=== PATIENT | female | born 1970 | race Caucasian/White ===

== ENCOUNTER 2018-11-08 12:03 | Inpatient (IN) ==
--- OUTSIDE RECORDS SUMMARY | 2018-11-08 12:06 | External Medical Summary | Continuity of Care Document ---
:1970 Author Name Valente MAilyn Address Unavailable Unavailable , Care Team Providers Name Role Phone Unavailable Unavailable Unavailable Nicko WAHL M.D. Unavailable Unavailable Unavailable Unavailable Unavailable Problems Exertional dyspnea (786.09) (R06.09) Back pain (724.5) (M54.9) Chest pain (786.50) (R07.9) Encounter for routine gynecological examination (V72.31) (Z0 1.419) Solitary thyroid nodule (241.0) (E04.1) Lump or mass in breast (611.72) (N63.0) Abdominal pain, RUQ (right upper quadrant) (789.01) (R10.11) Allergies and Adverse Reactions Aspirin TABS (Allergy) Penicillins (Allergy) Medications Multi-Vitamin Oral Tablet , M.D. Refills: 0 Procedures History of Breast Surgery Enlargement Procedure Status: Completed History of Oral Surgery Status: Complete d History of Oral Surgery Tooth Extraction Status: Completed History of Biopsy Thyroid Using Percutaneous Core Needle Status: Completed History of Laparoscopy With Excision Of Ectopic Status: Completed History of Hysteroscopy With Endometrial Ablation Status: Completed History of Lysis Of Peritoneal Adhesions Status: Completed History of Surgical Treatment Of Missed In First Status: Completed Trimester Immunizations Immunizations not documented Family History Grandmother Family history of Breast Cancer (V16.3) Status: Active Father Family history of CABG Status: Active Family history of pulmonary fibrosis (V17.6) (Z83.6) Status: Active Social History - Smoking Status Unknown if ever smoked Plan of Treatment Planned Observations Planned Goals not documented Results No Known Results Results not documented
[2018-11-08] MEDS ORDERED: OPTIRAY 320 125ml IV PRN (12:10)
--- NOTE | 2018-11-08 12:30 | CT Scan Report ---
CT angio head wo/w CLINICAL HISTORY: 48 years-old Female presenting with STROKE. TECHNIQUE: Multidetector CT angiography of the head was performed before and after the administration of intravenous contrast. 3-D volumetric and/or maximum intensity projection (MIP) images were subseq uently reconstructed for review. IV contrast: 121 mL of Optiray 320. One or more dose lowering techni ques were used consistent with the principles of ALARA (as low as reasonably achievable), including a utomatic exposure control, mA or kV adjustment to individual patient size, and/or use of iterative re construction. COMPARISON: None. CT DOSE (mGy.cm): The estimated cumulative dose is 1101.86 mGy.cm. FINDINGS: Chemical Mixer topogram: Unremarkable. NONCONTRAST CT HEAD: Ventricles and sulci normal in size. No hemorrhage. Brain parenchyma normal in appearance with preser abhilash sandoval-white differentiation. No acute territorial infarct. No mass effect or midline shift. No ext ra-axial fluid collection. Paranasal sinuses and mastoid air cells clear. Calvarium intact. CTA HEAD: Anterior circulation: Intracranial portions of the internal carotid arteries patent to the level of t he termini. Anterior cerebral arteries patent. Middle cerebral arteries patent. Anterior communicatin g artery patent. Posterior circulation: Left dominant vertebral artery. Intradural portions of the vertebral arteries patent. Posterior inferior cerebellar arteries patent. Basilar artery patent. Anterior inferior cereb ellar arteries poorly visualized. Superior cerebellar arteries patent. origin of the right post erior cerebral artery (ADVERTISING TEACHER). Conventional origin of the left ADVERTISING TEACHER, which is also patent. Posterior com municating arteries patent. Dural venous sinuses: Patent. Other: Allowing for the phase of contrast, brain parenchyma within normal limits. Calvarium intact. IMPRESSION: 1. No acute intracranial abnormality. 2. No evidence of aneurysm, focal vessel occlusion, or significant stenosis of the intracranial pilar da. Electronically signed by: Sin Saavedra M.D. 11/08/2018 12:29 PM
--- NOTE | 2018-11-08 12:33 | CT Scan Report ---
CT angio neck with con CLINICAL HISTORY: 48 years-old Female with stroke. Acute strokelike symptoms COMPARISON STUDY: CTA of the head of same day TECHNIQUE: Following the IV administration of 121 mL of Optiray 320, CT angiogram of the neck was per formed from the aortic arch to the skull base. Images are reviewed in the axial, sagittal, and singh l planes. 3-D MIPS images are created and assessed. IV contrast was administered without complication . All measurements were calculated based on NASCET criteria. A dose lowering technique was utilized adhering to the principles of ALARA. FINDINGS: The imaged opacified pulmonary arterial tree is unremarkable. Three-vessel morphology of aortic arch. Patency of the imaged bilateral subclavian arteries. Bilateral common carotid arteries are widely pa tent and unremarkable. Mild mixed plaque of the left carotid bulb results in less than 50% luminal na rrowing. The right carotid bulb and proximal right ICA appear normal. The bilateral internal carotid arteries are widely patent. Dominant left vertebral artery. Bilateral vertebral arteries appear paten t. A large portion of the right vertebral artery terminates into the right PICA. Diminutive basilar a rtery with origin of the bilateral posterior cerebral arteries. Partially imaged left breast implant. There is mild biapical pleural-parenchymal scarring. Soft tissu es are unremarkable. No adenopathy. Bones appear intact. Mild disc space narrowing with spondylitic s purring and facet arthrosis at C5-C6. IMPRESSION:Unremarkable CTA without aneurysm, dissection, high-grade stenosis or proximal branch occl usion. The above report was generated using voice recognition software. It may contain grammatical, syntax o r spelling errors. Electronically signed by: Raymundo Hawthorne M.D. 11/08/2018 12:32 PM
[2018-11-08 12:36] LABS: Basophils # (auto) 0.01 K/uL (0-0.2); Basophils % (auto) 0.2 %; Eosinophils # (auto) 0.04 K/uL (0-0.5); Eosinophils % (auto) 0.7 %; Hematocrit (blood only) 37.7 % (37-47); Hemoglobin 13.1 g/dL (12.0-16.0); Immature Granulocytes # (auto) 0.02 K/uL (0.00-0.02); Immature Granulocytes % (auto) 0.4 %; Mean Corpuscular Hemoglobin 31.2 pg (25-34); Mean Corpuscular Hgb Conc 34.7 g/dL (32-36); Mean Corpuscular Volume 89.8 fL (80-100); Mean Platelet Volume 9.6 fL (7.4-10.4); Monocytes # (auto) 0.49 K/uL (0.11-0.59); Monocytes % (auto) 8.7 %; Neutrophils # (auto) 3.79 K/uL (1.4-6.5); Platelet Count 266 K/uL (130-400); RDW Coefficient of Variation 12.6 % (11.5-14.5); RDW Standard Deviation 41.6 fL (36.4-46.3); White Blood Count 5.65 K/uL (4.8-10.8)
[2018-11-08] MEDS ORDERED: ALTEPLASE For Stroke IV STA (12:48)
[2018-11-08 12:50] LABS: INR 1.1 (0.9-1.1); Partial Thromboplastin Ratio 1.2; Partial Thromboplastin Time 31.6 Seconds (21.0-31.0); Prothrombin Time 10.8 Seconds (9.0-12.0)
[2018-11-08 12:54] LABS: Pregnancy Test, Serum Negative (Negative)
[2018-11-08] MEDS ORDERED: ALTEPLASE IV ONE ×2 (12:55→13:00)
[2018-11-08] MEDS ORDERED: RECOMBINANT IV ONE ×2 (12:55→13:00)
[2018-11-08 12:56] LABS: Alanine Aminotransferase 17 U/L (12-78); Albumin Level 3.5 gm/dl (3.4-5.0); Aspartate Aminotransferase 10 U/L (15-37); BUN Creatinine Ratio 12.7 (10-20); Blood Urea Nitrogen 9 mg/dl (7-18); Calcium 8.5 mg/dl (8.5-10.1); Carbon Dioxide 26 mmol/L (21-32); Chloride 106 mmol/L (98-107); Est GFR (African American) 110.3; Est GFR (Non-African American) 95.1; Glucose 94 mg/dl (70-99); Magnesium 2.1 mg/dl (1.8-2.4); Potassium 3.8 mmol/L (3.5-5.1); Sodium 138 mmol/L (136-145)
[2018-11-08 13:00] LABS: Albumin Globulin Ratio 1.2 (0.9-2); Alkaline Phosphatase 70 U/L (45-117); Bilirubin,Total 0.6 mg/dl (0.2-1); Globulin 2.9 gm/dl (2.5-4.0); Total Protein 6.4 gm/dl (6.4-8.2); Troponin I < 0.015 ng/ml (0-0.045)
[2018-11-08] MEDS ORDERED: WATER, STERILE 50 ML, TRANEXAMIC ACID ORAL RINSE 5,000 MG, BARCODE IDENTIFIER 1 EA MT ONE (13:03)
[2018-11-08] MEDS: SODIUM CHLORIDE 0.9% 1000ML 1,000 ML IV SCH ×2 (13:03→16:00)
[2018-11-08] MEDS ORDERED: DiphenhydrAMINE HCL 50 MG/ML VIAL ONE (14:18)
--- NOTE | 2018-11-08 14:39 | History & Physical Report ---
Date of Service November 08, 2018 Assessment & Plan (1) Stroke-like symptoms: Pt given tpa in the ED after telemed eval CTA head/neck WNL MRI pending CBC, PRP WNL Trop neg x1 Neuro c/s PT/OT if function not regained Recent headache made complex migraine a possible dx, however pt without hx of prior migraines ICU for monitoring per tpa protocol (2) DVT prophylaxis: SCDs History of Present Illness Primary Care Provider: NO PCP 48 y/o F c/o sudden onset R UE/LE paralysis. Pt was having dental implants done today with Dr. Roa. She was sedated with propofol and as she was coming out of this around 11a she was noted to have R UE/LE paralysis. She has no prior hx of similar issue. She states that for the last few days she has been taking ibuprofen for what she thought was a stress headache. She is not usually one for headaches but this is a busy time of year for her at work and her children went back to school today as well, so she thought it was stress related. Ibuprofen was not really helping. She cannot tell me where her headaches were located. No vision issues, n/v. She states she was still able to go to work. She had also noted some R sided tingling in her extremities that last few days, which was new. She took a hot shower for about 20 minutes and this resolved. She noted it had returned with the paralysis issue post-dental work. Pt states that while she was having the paralysis in the office she had full sensation to her R UE/LE. Pt was evaluated by telemed in the ED and it was determined that she should be given tpa. At this point, pt does have ability to move her LE and UE now, but not as she normally would. She can move all of her fingers and her hand, but still with issues picking up her arm. She can move her LE and toes as well now. Prior to this, they had been unable to move at all. Pt denies fever, SOB, chest pain, abd pain, n/v/c/d, LE pain or swelling. Pt notes that she had the same procedure done recently, also with propofol use and no issues. Allergies Allergy/AdvReac Type Severity Reaction Status Date / Time aspirin Allergy Intermediate Verified 11/08/18 13:42 Penicillins Allergy Intermediate HIVES Verified 11/08/18 13:42 Home Medications Home Medications Medication Instructions Recorded Confirmed Type propofol 180 mg IV UD 11/08/18 11/08/18 History Past Med/Surg History Medical History No pertinent past medical history Family History Father Myocardial infarction, Onset Age: 42 CABG Other No pertinent family history in first degree relatives Social History Preferred Language: Occitan Beliefs That Will Affect Care: None Current Living Situation: Spouse Other Information That Helps Us Care for You: No Feels Safe at Home: Yes Safety Concerns: Feels Safe At This Time Smoking Status: Never smoker Hx Alcohol Use: Yes (occasional mixed drink) Alcohol type: wine Hx Substance Use: No Review of Systems Review of Systems: Pertinent positives and negatives reviewed in HPI--all others negative Physical Exam Constitutional: WD/WN, vitals as above Eyes: normal visual hernandez by confrontation and + anicteric sclerae Neck: normal visual inspection and trachea midline Respiratory: normal respiratory effort, lungs clear to auscultation Cardiovascular: Rate/Rhythm: regular rate and regular rhythm Gastrointestinal (Abdomen): Inspection/Auscultation: abdomen not distended Percussion/Palpation: abdomen soft; abdomen nontender Musculoskeletal: Head/Neck/Chest: normocephalic and head atraumatic negative for edema, peripheral pulses intact Skin: no rashes, warm and dry Neurologic: CN's II-XI intact bilaterally and awake; not confused Speech / Cognition: normal speech Decreased R sided strength against resistance in all planes, 3/5 Moving all fingers and able to grasp my hand, but weak R sided network architect strength 3/5 Psychiatric: A+Ox3, euthymic affect Results & Data Vital Signs (Past 12 Hours) Vital Signs Temp Pulse Pulse Resp BP BP Pulse Ox 11/08/18 14:20 118 H 147/113 H 99 11/08/18 14:10 91 H 151/95 H 99 11/08/18 14:00 93 H 136/103 H 98 11/08/18 13:40 145/95 H 98 11/08/18 13:31 89 154/98 H 99 11/08/18 13:20 88 144/97 H 98 11/08/18 13:12 93 H 150/100 H 98 11/08/18 13:10 88 150/105 H 98 11/08/18 13:05 96 H 154/97 H 98 11/08/18 13:02 97 H 143/92 H 98 11/08/18 13:00 91 H 160/123 H 98 11/08/18 12:31 105 H 27 H 156/103 H 99 11/08/18 12:30 103 H 156/103 H 98 11/08/18 12:17 36.7 C 110 H 20 163/98 H 98 Diagnostic Findings CTA head/neck: neg for acute Code Status & VTE Plan Code Status Full code VTE Prophylaxis Plan VTE Prophylaxis will be ordered: Yes PG Care Time/CCT Total # of Minutes Spent Total Time Spent with Patient: Total time spent is greater than 50% in coordination of care (as documented) at patient's floor/unit and/or counseling patient:
--- NOTE | 2018-11-08 14:59 | Critical Care Consultation ---
Date of Consultation November 08, 2018 Assessment & Plan (1) Hemiplegia affecting right dominant side: Reason Critically Ill: 48-year-old female here with a PMHx significant for ruptured ectopic , resolved right collapsed lung, dental surgery, and a single prior episode of weakness 1 week prior to admission who presented with right extremity weakness and qualitative sensory decrease following sedation for tooth extraction and who was admitted for stroke evaluation as/P TPA admini stration.. Neuro - [facility] ICU: NEGATIVE Left-sided weakness 2/2 ? TIA versus stroke versus complex migraine as/P TPA at 1302 hrs. 11/08 Initial stroke scale of 7 improved to 1 on clinical exam. Patient feels 90% back to normal, improving right-sided strength. CTA without aneurysm, dissection, high-grade stenosis or proximal branch occlusion. CT-H shows no acute intracranial abnormality, no evidence of aneurysm, focal vessel occlusion, or significant stenosis of the intracranial arteries. MRI pending Day 2 post TPA orders per protocol tomorrow Cardiac - No cardiac history per patient. Troponin negative. Hypertension Systolic goal less than 185, diastolic goal less than 105 Metoprolol tartrate 5 mg IV every 6 hours as needed for sys>185, diast >105, Hold for HR<60 or systolic <100 Respiratory - No pulmonary disease per patient Maintaining good oxygen saturation without tachypnea on room air GI - Regular diet, soft texture 2/2 pain from tooth extraction RENAL/LYTES - No significant electrolyte derangement Creatinine 0.74 replace lytes as needed. - No concerns at this time. ENDO - No acute concerns, glucose 94 on admit HEME - Stable H&H. We will monitor for any drops in the setting of TPA administration Hemoglobin 13.1 on admit ID - No concerns for infection at this point. INTEGUMENTARY - No concerns, no lesions/rash LINES/IV ACCESS - Right and left antecubital PIVs intact. DVT PROPHYLAXIS - Contraindicated in the setting of TPA administration Thank you for allowing us to be part of this patient's care. Please refer to Dr. Osorio's documentation for any further recommendations. (2) Stroke-like symptoms: (3) Received intravenous tissue plasminogen activator (tPA) within last 24 hours: Supervising Physician Co-Signing Physician Notes Dr. Guerra was resident physician during care of patient. I separately evaluated patient for marquez portions of the history and the exam. I was present during the critical portion of medical decision making, and I discussed the case with the resident. I generally agree with the findings and plan. Significantly improving neuro symptoms, stable to go to MRI to evaluate for acute ischemia. History of Present Illness Reason for Consultation: Right-sided weakness s/P TPA Requesting Physician: Magdalena Potter History of Present Illness Stormy is a 48-year-old female with a past medical history of ruptured ectopic , and dental surgery who presents with an episode of right arm/leg weakness and right-sided facial "dullness" to sensation but not complete numbness. She received TPA for a stroke scale of 7 in the emergency department. Other reports she was in her usual state of health up until this morning when she went to have a left lower tooth (#19) extracted at the dentist. She was last known well at 10:30 AM at which time she was sedated with propofol for the procedure. When she awoke she experienced bilateral arm and right leg weakness. Her left arm weakness resolved after several minutes, however she had almost no strength in her right arm and leg and was unable to move them. She reports that she had sensation in both arms and both legs, although soft touch felt more dull on the right compared to the left. Emergency transport was called by the dental office and she was brought to the emergency department where she received TPA at 1302 hrs. (6 mg) and was placed on a 54 mg drip at 1307 hrs. She did not have any facial asymmetry/facial droop or facial weakness. She endorses a similar episode 1 week ago when she awoke at 1 AM with chest pain, palpitations, and weakness over her entire body. She "felt like I was going to pass out "and felt weak all over and had difficulty walking. She did not have any shortness of breath or diaphoresis with this episode. She reports the episode lasted approximately an hour and then passed. No prior history of similar symptoms before this. She reports she is able to mason her children, go up several flights of stairs, and walk briskly without any chest pain or unusual shortness of breath. No prior history of cardiac disease, although she notes a strong family history with her father having an WI at age 42 and her mother and father both requiring pacers when they got older. No history of thyroid disease. Denies other family history. She endorses a current headache, "mild dullness "on the left side. Slightly throbs, no visual change or aura. Reports history of intermittent headaches in the past. Medical history: Ruptured ectopic , dental extraction, history of right collapsed lung after uterine ablation. Denies other medical or surgical history Allergies: Penicillin and aspirin allergy, hives as a child per patient Social: Denies tobacco use, social alcohol use less than 1/week when drinking a sitting on average. No recreational drug use, specifically denies marijuana and cocaine. Allergies Allergy/AdvReac Type Severity Reaction Status Date / Time aspirin Allergy Intermediate Verified 11/08/18 13:42 Penicillins Allergy Intermediate HIVES Verified 11/08/18 13:42 Home Medications Home Medications Medication Instructions Recorded Confirmed Type propofol 180 mg IV UD 11/08/18 11/08/18 History Patient History Medical History No pertinent past medical history Family History Father Myocardial infarction, Onset Age: 42 CABG Other No pertinent family history in first degree relatives Social History Preferred Language: Azeri Communication Ability: Effective Beliefs That Will Affect Care: None Current Living Situation: Spouse Other Information That Helps Us Care for You: No Feels Safe at Home: Yes Safety Concerns: Feels Safe At This Time Smoking Status: Never smoker Hx Alcohol Use: Yes (occasional mixed drink) Alcohol type: wine Hx Substance Use: No Review of Systems Review of Systems: Constitutional: Denies fever, chills, malaise, Eyes: Denies double vision, vision change, eye pain ENT: Denies ear pain, sore throat, sinus pain Cardiovascular: Chest pain and palpitations as noted in HPI, denies extremity swelling Respiratory: Denies shortness of breath, cough, sputum production, difficulty breathing Gastrointestinal: Denies abdominal pain, nausea, vomiting, constipation, diarrh ea Genitourinary: Denies pain with urination, urinary urgency Musculoskeletal: Endorses weakness and sensory change as noted in HPI. Integumentary:Denies rash, lesions, bruising Neurological: Versus headache as noted in HPI. Denies tingling. Physical Exam Physical Exam: General: A&Ox3. NAD. Cooperative. Able to follow one and two- step commands. No aphasia. Speech with normal volume, prosody and linear thought process. HEENT: Atraumatic, normocephalic. No facial asymmetry or facial droop. Facial sensation intact and symmetrical in all distributions. Facial strength intact and symmetrical. Pupils equal and reactive to light and accommodation. Extraocular movements intact without nystagmus or saccades. No visual field cuts. Pulm: CTAB A&P. -wheezes, -rales, -rhonchi. Symmetrical chest rise. No increase work of breathing. No respiratory distress. Cardiac: RRR, -mrg. Radial pulses intact and symmetrical. Abdominal: Nontender, nondistended, soft. BS present. Extremity: Right reflesher strength, interosseal 4+/5. Ankle dorsiflexion/plantarflexion and hip flexion 4+/5. Elbow flexion 5/5, shoulder internal/external rotation/flexion/extension 5/5. Sensation intact and symmetrical. Babinski downgoing. Patellar DTR 2+. Left reflesher strength, interosseal, elbow flexion/extension, shoulder internal/external rotation/flexion/extension, hip flexion, ankle plantar flexion/dorsiflexion 5/5. Sensation intact. Babinski downgoing. Patellar DTR 2+. NIH SS: Alert, oriented x3, blinks eyes and squeezes hands, EOM intact, no visual field cuts, no facial asymmetry, no left arm or leg drift, no right arm drift, minimal right leg drift which does not hit the bed, no ataxia, no sensory asymmetry, no aphasia, no dysarthria, no extinction/inattention. Overall score reduced to 1 from 7 on admit to ED. Results & Data Vital Signs (Past 12 Hours) Vital Signs Temp Pulse Pulse Resp BP BP Pulse Ox 11/08/18 14:41 91 H 124/104 H 100 11/08/18 14:30 96 H 165/107 H 100 11/08/18 14:23 110 H 156/118 H 100 11/08/18 14:20 118 H 147/113 H 99 11/08/18 14:10 91 H 151/95 H 99 11/08/18 14:00 93 H 136/103 H 98 11/08/18 13:40 145/95 H 98 11/08/18 13:31 89 154/98 H 99 11/08/18 13:20 88 144/97 H 98 11/08/18 13:12 93 H 150/100 H 98 11/08/18 13:10 88 150/105 H 98 11/08/18 13:05 96 H 154/97 H 98 11/08/18 13:02 97 H 143/92 H 98 11/08/18 13:00 91 H 160/123 H 98 11/08/18 12:31 105 H 27 H 156/103 H 99 11/08/18 12:30 103 H 156/103 H 98 11/08/18 12:17 36.7 C 110 H 20 163/98 H 98 PG Care Time/CCT Total # of Minutes Spent Total Time Spent with Patient: Total time spent is greater than 50% in coordination of care (as documented) at patient's floor/unit and/or counseling patient: Resident Activity Tracking Resident Involvement: Resident Care Provided Care Provided: Adult Hospital Medicine (1) Hemiplegia affecting right dominant side Hemiplegia etiology: unspecified etiology Hemiplegia type: unspecified type Qualified Code(s): G81.91 - Hemiplegia, unspecified affecting right dominant side
[2018-11-08] MEDS ORDERED: ICU PROTOCOL FOR HYPERGLYCEMIA PRN (15:51)
[2018-11-08] MEDS ORDERED: METOPROLOL TARTRATE 1 MG/ML VIAL IV STA (15:55)
[2018-11-08] MEDS ORDERED: METOPROLOL TARTRATE 1 MG/ML VIAL IV PRN (17:14)
--- NOTE | 2018-11-08 17:45 | Emergency Department Note ---
Entered by Markell Bhatt acting as a scribe for History of Present Illness General Chief complaint: Stroke Alert Source: patient History of Present Illness Provider complaint: Hemiparesis Onset (ago): hour(s) (1.5) Location: head Pain Consistency: + constant Relieved By: + none Exacerbated By: + none Associated symptoms: + headaches and + weakness; no chest pain and no shortness of breath The patient is a 48 year old female who presents to the Emergency Room with complaints of constant right sided hemiparesis that started about 1.5 hours ago immediately following an oral surgery done by Dr. Baird. The patient states she can not move her right upper or lower extremities but she does still have minimal sensation in these limbs. The patient mentioned that she had a headache for the previous 2 days along with one episode of chest pain, however this has since resolved. Per the , the patient had a similar episode of h emiparesis a week ago, but it resolved within the hour. The patient currently knows where she is, her age, and is speaking normally. She denies any chest pain or shortness of breath. Per EMS, the patient was given 108mg of Propofol during her oral procedure. Home Medications Home Medications Medication Instructions Recorded Confirmed Type propofol 180 mg IV UD 11/08/18 11/08/18 History Allergies Allergy/AdvReac Type Severity Reaction Status Date / Time aspirin Allergy Intermediate Verified 11/08/18 13:42 Penicillins Allergy Intermediate HIVES Verified 11/08/18 13:42 Past Med/Surg History Medical History No pertinent past medical history Family History Father , age 78 of pulmonary fibrosis Myocardial infarction, Onset Age: 42 CABG Coronary heart disease Mother Coronary heart disease Other No pertinent family history in first degree relatives Social History Preferred Language: Upper Sorbian Communication Ability: Effective Beliefs That Will Affect Care: None Current Living Situation: Spouse current occupational status: employed current occupation: portfolio assistant in the [employer] Other Information That Helps Us Care for You: No Feels Safe at Home: Yes Safety Concerns: Feels Safe At This Time Smoking Status: Never smoker Hx Alcohol Use: Yes (occasional mixed drink) Alcohol type: wine Alcohol Intake Frequency Comment: Once per week or less. Hx Substance Use: No Review of Systems See HPI for pertinent positives & negatives. and A total of 10 systems reviewed and were otherwise negative Physical Exam Vital Signs Vital Signs - 24 hr 11/08/18 12:17 11/08/18 12:30 11/08/18 12:31 Temperature 36.7 C Temperature Source Oral Sepsis Recent Fever Within 48 Hours No Sepsis New/Unexplained Change in Mental Status No Sepsis Action Taken by Nursing No Action Required Pulse Rate 110 H 103 H Pulse Rate [Right Finger] 105 H Pulse Rate from SpO2 Sensor 102 H Pulse Rhythm Regular Pulse Rhythm [Right Finger] Regular Pulse Strength Normal Pulse Strength [Right Finger] Normal Respiratory Rate 20 27 H Respiratory Effort / Characteristics Non-Labored Non-Labored Respiratory Depth Normal Normal Respiratory Pattern Regular Regular Blood Pressure 163/98 H 156/103 H Blood Pressure [Right Arm] 156/103 H Blood Pressure Mean 119 120 Blood Pressure Mean [Right Arm] 120 Blood Pressure Position Sitting Blood Pressure Position [Right Arm] Sitting Pulse Oximetry 98 98 99 Oxygen Delivery Method Room Air Room Air 11/08/18 13:00 11/08/18 13:02 11/08/18 13:05 Temperature Temperature Source Sepsis Recent Fever Within 48 Hours Sepsis New/Unexplained Change in Mental Status Sepsis Action Taken by Nursing Pulse Rate 91 H 97 H 96 H Pulse Rate [Right Finger] Pulse Rate from SpO2 Sensor 91 H 96 H 98 H Pulse Rhythm Pulse Rhythm [Right Finger] Pulse Strength Pulse Strength [Right Finger] Respiratory Rate Respiratory Effort / Characteristics Respiratory Depth Respiratory Pattern Blood Pressure 160/123 H 143/92 H 154/97 H Blood Pressure [Right Arm] Blood Pressure Mean 135 109 116 Blood Pressure Mean [Right Arm] Blood Pressure Position Blood Pressure Position [Right Arm] Pulse Oximetry 98 98 98 Oxygen Delivery Method 11/08/18 13:10 11/08/18 13:12 11/08/18 13:20 Temperature Temperature Source Sepsis Recent Fever Within 48 Hours Sepsis New/Unexplained Change in Mental Status Sepsis Action Taken by Nursing Pulse Rate 88 93 H 88 Pulse Rate [Right Finger] Pulse Rate from SpO2 Sensor 89 93 H 90 Pulse Rhythm Pulse Rhythm [Right Finger] Pulse Strength Pulse Strength [Right Finger] Respiratory Rate Respiratory Effort / Characteristics Respiratory Depth Respiratory Pattern Blood Pressure 150/105 H 150/100 H 144/97 H Blood Pressure [Right Arm] Blood Pressure Mean 120 116 112 Blood Pressure Mean [Right Arm] Blood Pressure Position Blood Pressure Position [Right Arm] Pulse Oximetry 98 98 98 Oxygen Delivery Method 11/08/18 13:31 11/08/18 13:40 11/08/18 14:00 Temperature Temperature Source Sepsis Recent Fever Within 48 Hours Sepsis New/Unexplained Change in Mental Status Sepsis Action Taken by Nursing Pulse Rate 89 93 H Pulse Rate [Right Finger] Pulse Rate from SpO2 Sensor 89 90 91 H Pulse Rhythm Pulse Rhythm [Right Finger] Pulse Strength Pulse Strength [Right Finger] Respiratory Rate Respiratory Effort / Characteristics Respiratory Depth Respiratory Pattern Blood Pressure 154/98 H 145/95 H 136/103 H Blood Pressure [Right Arm] Blood Pressure Mean 116 111 114 Blood Pressure Mean [Right Arm] Blood Pressure Position Blood Pressure Position [Right Arm] Pulse Oximetry 99 98 98 Oxygen Delivery Method 11/08/18 14:10 11/08/18 14:20 11/08/18 14:23 Temperature Temperature Source Sepsis Recent Fever Within 48 Hours Sepsis New/Unexplained Change in Mental Status Sepsis Action Taken by Nursing Pulse Rate 91 H 118 H 110 H Pulse Rate [Right Finger] Pulse Rate from SpO2 Sensor 91 H 118 H 107 H Pulse Rhythm Pulse Rhythm [Right Finger] Pulse Strength Pulse Strength [Right Finger] Respiratory Rate Respiratory Effort / Characteristics Respiratory Depth Respiratory Pattern Blood Pressure 151/95 H 147/113 H 156/118 H Blood Pressure [Right Arm] Blood Pressure Mean 113 124 130 Blood Pressure Mean [Right Arm] Blood Pressure Position Blood Pressure Position [Right Arm] Pulse Oximetry 99 99 100 Oxygen Delivery Method 11/08/18 14:30 Temperature Temperature Source Sepsis Recent Fever Within 48 Hours Sepsis New/Unexplained Change in Mental Status Sepsis Action Taken by Nursing Pulse Rate 96 H Pulse Rate [Right Finger] Pulse Rate from SpO2 Sensor 90 Pulse Rhythm Pulse Rhythm [Right Finger] Pulse Strength Pulse Strength [Right Finger] Respiratory Rate Respiratory Effort / Characteristics Respiratory Depth Respiratory Pattern Blood Pressure 165/107 H Blood Pressure [Right Arm] Blood Pressure Mean 126 Blood Pressure Mean [Right Arm] Blood Pressure Position Blood Pressure Position [Right Arm] Pulse Oximetry 100 Oxygen Delivery Method Vital signs reviewed. General: Well-appearing 48 year old female, in no significant distress. HEENT: No scleral icterus, PERRLA, neck supple. Atraumatic. Cardiovascular: Regular rate and rhythm, no extra sounds. Pulmonary: Clear to auscultation bilaterally, normal work of breathing. Abdomen: Soft, nontender, nondistended, positive bowel sounds. Musculoskeletal: Atraumatic, no peripheral edema. Neurologic: Patient awake alert and oriented x 3. Cranial nerves 2 through 12 grossly intact. Dense hemiparesis of the right upper and lower extremities. Very subtle twitching of the toes and fingers on the right side. Skin: Warm, dry, no rash Course 1203: Past medical records reviewed. A stroke alert was immediately called. The patient was evaluated in room B01, and a complete history and physical examination were performed. 1210: I spoke Dr. Tyler Ramírez about the patient's case. She is going to evaluate the patient via TeleStroke. 1216: I spoke to Dr. Baird who further informed me about the patient. 1230: I spoke to Dr. Scott after his evaluation and he recommended TPA due to her dense right sided hemiparesis. 1323: I spoke to Dr. Potter [facility] Hospitalist about the patient's case. She is going to accept the patient for further evaluation. 1447: I reevaluated the patient and her strength has greatly improved on her right side. Consultations Consultation #1: I spoke Dr. Tyler Ramírez about the patient's case. She is going to evaluate the patient via TeleStroke. Time: 12:10 Consultation #2: I spoke to Dr. Baird who further informed me about the patient. Time: 12:16 Consultation #3: I spoke to Dr. Scott after his evaluation and he recommended TPA due to her dense right sided hemiparesis. Time: 12:30 Additional Consultation(s): 1323: I spoke to Dr. Potter [facility] Hospitalist about the patient's case. She is going to accept the patient for further evaluation. Administered Medications Discontinued Medications Sterile Water 50 ml/Tranexamic Acid 5,000 mg/BARCODE IDENTIFIER 1 ea 0 ml MT ONE ONE Stop: 11/08/18 13:04 Last Admin: 11/08/18 13:23 Dose: 10 ml Documented by: [id number] Diphenhydramine HCl (Benadryl) Confirm Administered Dose 50 mg .ROUTE .STK-MED ONE Stop: 11/08/18 14:19 Last Admin: 11/08/18 14:20 Dose: 25 mg Documented by: [id number] Gadobutrol (Gadavist 65ml) 6.7 ml IV ONCE PRN PRN Reason: Interaction Checking Stop: 11/12/18 18:20 Last Admin: 11/08/18 18:22 Dose: 6.7 ml Documented by: [id number] Sodium Chloride (Nss 1000ml) 1,000 mls @ 100 mls/hr IV .Q10H [place] Stop: 12/08/18 12:14 Last Infusion: 11/09/18 11:50 Dose: 0 mls/hr Documented by: [id number] Admin: 11/09/18 03:11 Dose: 100 mls/hr Documented by: [id number] Infusion: 11/09/18 02:00 Dose: 100 mls/hr Documented by: [id number] Admin: 11/08/18 16:00 Dose: 100 mls/hr Documented by: [id number] Infusion: 11/08/18 14:00 Dose: 0 mls/hr Documented by: [id number] Admin: 11/08/18 13:03 Dose: 100 mls/hr Documented by: [id number] Alteplase, Recombinant 6 mg/ (Syringe) 6 mls @ 6 mls/min IV ONE ONE Stop: 11/08/18 12:56 Last Admin: 11/08/18 13:02 Dose: 6 mls/min Documented by: [id number] Cosigned by: [id number] Alteplase, Recombinant 54 mg/ (EMPTY BAG) 54 mls @ 54 mls/hr IV TODAY@1300 ONE Stop: 11/08/18 13:59 Last Infusion: 11/08/18 14:25 Dose: 0 mls/hr Documented by: [id number] Cosigned by: [id number] Admin: 11/08/18 13:07 Dose: 54 mls/hr Documented by: [id number] Cosigned by: [id number] Ioversol (Optiray 320 125ml) 121 ml IV ONCE PRN PRN Reason: Interaction Checking Stop: 11/12/18 12:09 Last Admin: 11/08/18 12:11 Dose: 121 ml Documented by: [id number] Metoprolol Tartrate (Lopressor) 5 mg IV NOW STA Stop: 11/08/18 15:56 Last Admin: 11/08/18 15:59 Dose: 5 mg Documented by: [id number] Medical Decision Making Differential Diagnosis Differential Diagnosis includes but is not limited to ischemic Stroke, hemorrhagic stroke, bells palsy, mass, neoplasm, migraine headache, seizure, subarachnoid hemorrhage, TIA, and transient global amnesia. Medical Records Attestation: I reviewed the patient's medical records. Home Medications Current Medication List: was personally reviewed by me Laboratory Data Attestation: I reviewed the patient's lab results. Result diagrams: 11/09/18 13:29 11/09/18 13:29 Lab Results 11/08/18 11/08/18 11/08/18 Range/Units 12:19 12:20 12:20 WBC 5.65 (4.8-10.8) K/uL RBC 4.20 (4.2-5.4) M/uL Hgb 13.1 (12.0-16.0) g/dL Hct 37.7 (37-47) % MCV 89.8 (80-100) fL MCH 31.2 (25-34) pg MCHC 34.7 (32-36) g/dL RDW Std Deviation 41.6 (36.4-46.3) fL RDW Coeff of Josephine 12.6 (11.5-14.5) % Plt Count 266 (130-400) K/uL MPV 9.6 (7.4-10.4) fL Immature Gran % (Auto) 0.4 % Neut % (Auto) 67.0 % Lymph % (Auto) 23.0 % Ventura % (Auto) 8.7 % Eos % (Auto) 0.7 % Baso % (Auto) 0.2 % Immature Gran # (Auto) 0.02 (0.00-0.02) K/uL Neut # (Auto) 3.79 (1.4-6.5) K/uL Lymph # (Auto) 1.30 (1.2-3.4) K/uL Ventura # (Auto) 0.49 (0.11-0.59) K/uL Eos # (Auto) 0.04 (0-0.5) K/uL Baso # (Auto) 0.01 (0-0.2) K/uL PT 10.8 (9.0-12.0) Seconds INR 1.1 (0.9-1.1) APTT 31.6 H (21.0-31.0) Seconds PTT Ratio 1.2 Sodium (136-145) mmol/L Potassium (3.5-5.1) mmol/L Chloride (98-107) mmol/L Carbon Dioxide (21-32) mmol/L Anion Gap (3-11) BUN (7-18) mg/dl Creatinine (0.6-1.2) mg/dl Est Cr Clr Drug Dosing Est GFR ( Amer) Est GFR (Non-Af Amer) BUN/Creatinine Ratio (10-20) Glucose (70-99) mg/dl POC Glucose 93 (70-99) Calcium (8.5-10.1) mg/dl Magnesium (1.8-2.4) mg/dl Total Bilirubin (0.2-1) mg/dl AST (15-37) U/L ALT (12-78) U/L Alkaline Phosphatase (45-117) U/L Troponin I (0-0.045) ng/ml Total Protein (6.4-8.2) gm/dl Albumin (3.4-5.0) gm/dl Globulin (2.5-4.0) gm/dl Albumin/Globulin Ratio (0.9-2) HCG, Qual (Negative) 11/08/18 11/08/18 Range/Units 12:20 12:20 WBC (4.8-10.8) K/uL RBC (4.2-5.4) M/uL Hgb (12.0-16.0) g/dL Hct (37-47) % MCV (80-100) fL MCH (25-34) pg MCHC (32-36) g/dL RDW Std Deviation (36.4-46.3) fL RDW Coeff of Josephine (11.5-14.5) % Plt Count (130-400) K/uL MPV (7.4-10.4) fL Immature Gran % (Auto) % Neut % (Auto) % Lymph % (Auto) % Ventura % (Auto) % Eos % (Auto) % Baso % (Auto) % Immature Gran # (Auto) (0.00-0.02) K/uL Neut # (Auto) (1.4-6.5) K/uL Lymph # (Auto) (1.2-3.4) K/uL Ventura # (Auto) (0.11-0.59) K/uL Eos # (Auto) (0-0.5) K/uL Baso # (Auto) (0-0.2) K/uL PT (9.0-12.0) Seconds INR (0.9-1.1) APTT (21.0-31.0) Seconds PTT Ratio Sodium 138 (136-145) mmol/L Potassium 3.8 (3.5-5.1) mmol/L Chloride 106 (98-107) mmol/L Carbon Dioxide 26 (21-32) mmol/L Anion Gap 6.0 (3-11) BUN 9 (7-18) mg/dl Creatinine 0.74 (0.6-1.2) mg/dl Est Cr Clr Drug Dosing Not Reportable Est GFR ( Amer) 110.3 Est GFR (Non-Af Amer) 95.1 BUN/Creatinine Ratio 12.7 (10-20) Glucose 94 (70-99) mg/dl POC Glucose (70-99) Calcium 8.5 (8.5-10.1) mg/dl Magnesium 2.1 (1.8-2.4) mg/dl Total Bilirubin 0.6 (0.2-1) mg/dl AST 10 L (15-37) U/L ALT 17 (12-78) U/L Alkaline Phosphatase 70 (45-117) U/L Troponin I < 0.015 (0-0.045) ng/ml Total Protein 6.4 (6.4-8.2) gm/dl Albumin 3.5 (3.4-5.0) gm/dl Globulin 2.9 (2.5-4.0) gm/dl Albumin/Globulin Ratio 1.2 (0.9-2) HCG, Qual Negative (Negative) Imaging Data Radiologist's Impression: Radiology results as stated below per my review and the radiologist's interpretation: CT angio head wo/w CLINICAL HISTORY: 48 years-old Female presenting with STROKE. TECHNIQUE: Multidetector CT angiography of the head was performed before and after the administration of intravenous contrast. 3-D volumetric and/or maximum intensity projection (MIP) images were subsequently reconstructed for review. IV contrast: 121 mL of Optiray 320. One or more dose lowering techniques were used consistent with the principles of ALARA (as low as reasonably achievable), including automatic exposure control, mA or kV adjustment to individual patient size, and/or use of iterative reconstruction. COMPARISON: None. CT DOSE (mGy.cm): The estimated cumulative dose is 1101.86 mGy.cm. FINDINGS: Slab Grinder topogram: Unremarkable. NONCONTRAST CT HEAD: Ventricles and sulci normal in size. No hemorrhage. Brain parenchyma normal in appearance with preserved sandoval-white differentiation. No acute territorial infarct. No mass effect or midline shift. No extra-axial fluid collection. Paranasal sinuses and mastoid air cells clear. Calvarium intact. CTA HEAD: Anterior circulation: Intracranial portions of the internal carotid arteries patent to the level of the termini. Anterior cerebral arteries patent. Middle cerebral arteries patent. Anterior communicating artery patent. Posterior circulation: Left dominant vertebral artery. Intradural portions of the vertebral arteries patent. Posterior inferior cerebellar arteries patent. Basilar artery patent. Anterior inferior cerebellar arteries poorly visualized. Superior cerebellar arteries patent. origin of the right posterior cerebral artery (WHARF TENDER). Conventional origin of the left WHARF TENDER, which is also elkins nt. Posterior communicating arteries patent. Dural venous sinuses: Patent. Other: Allowing for the phase of contrast, brain parenchyma within normal limits. Calvarium intact. IMPRESSION: 1. No acute intracranial abnormality. 2. No evidence of aneurysm, focal vessel occlusion, or significant stenosis of the intracranial arteries. Electronically signed by: Sin Saavedra M.D. 11/08/2018 12:[address] angio neck with con CLINICAL HISTORY: 48 years-old Female with stroke. Acute strokelike symptoms COMPARISON STUDY: CTA of the head of same day TECHNIQUE: Following the IV administration of 121 mL of Optiray 320, CT angiogram of the neck was performed from the aortic arch to the skull base. Images are reviewed in the axial, sagittal, and coronal planes. 3-D MIPS images are created and assessed. IV contrast was administered without complication. All measurements were calculated based on NASCET criteria. A dose lowering technique was utilized adhering to the principles of ALARA. FINDINGS: The imaged opacified pulmonary arterial tree is unremarkable. Three-vessel morphology of aortic arch. Patency of the imaged bilateral subclavian arteries. Bilateral common carotid arteries are widely patent and unremarkable. Mild mixed plaque of the left carotid bulb results in less than 50% luminal narrowing. The right carotid bulb and proximal right ICA appear normal. The bilateral internal carotid arteries are widely patent. Dominant left vertebral artery. Bilateral vertebral arteries appear patent. A large portion of the right vertebral artery terminates into the right PICA. Diminutive basilar artery with origin of the bilateral posterior cerebral arteries. Partially imaged left breast implant. There is mild biapical pleural-parenchymal scarring. Soft tissues are unremarkable. No adenopathy. Bones appear intact. Mild disc space narrowing with spondylitic spurring and facet arthrosis at C5- C6. IMPRESSION:Unremarkable CTA without aneurysm, dissection, high-grade stenosis or proximal branch occlusion. The above report was generated using voice recognition software. It may contain grammatical, syntax or spelling errors. Electronically signed by: Raymundo Hawthorne M.D. 11/08/2018 12:32 PM ECG Data Attestation: I personally reviewed and interpreted this ECG as follows: Indication: weakness Rate (beats per minute): 103 Rhythm: sinus tachycardia Findings: + other (Poor quality baseline for interpretation, Right axis deviation, QTC 453); no PAC, no PVC and no ectopy Blood Pressure Blood Pressure Findings: Elevated blood pressure Blood Pressure Disposition: further management by hospitalist [facility] Narrative This patient was evaluated and appeared to be in no significant distress. The patient had a dense hemiplegia of the right upper and right lower extremity. She had very subtle movements of the fingers and toes on the right side. She had full sensation. Patient's cranial nerves are intact and her speech is intact. A stroke alert had been called from the field upon EMS report. I did speak with Dr. Baird from the outpatient setting reporting on the patient. CT and CT angiograms of the patient's head and neck were performed and are negative for acute abnormality. Tele-stroke radiologist, Dr. Barrera did consult on the patient. It is difficult with this clinical presentation and negative imaging to determine if this is a stroke however this would be an unusual presentation without facial or speech involvement. TPA was recommended by neurology due to the potentially devastating consequences of the hemiplegia. Patient has very low bleeding risk with the exception of the recent dental work. After much deliberation with the patient and her , the pros and cons were discussed. Given the uncertainty of the etiology, TPA was administered. Patient was advised to bite on a gauze soaked in TXA to help diminish bleeding risk. After several hours, the patient had near resolution of the right sided hemiplegia. It is difficult to state whether or not this is a complex migraine presentation with hemiplegia or stroke symptoms. The patient was reevaluated on multiple occasions and kept abreast of the findings and plan. The hospitalist service has been consulted for further management. Impression & Plan Hemiplegia affecting right dominant side, Stroke-like symptoms Critical Care Time Critical Care Time: Yes Total Critical Care Time: 60 I have personally spent greater than 60 minutes of critical care time in the direct management of this patient. This includes bedside care, interpretation of diagnostic studies, and testing, discussion with consultants, patient, and family members, and other required patient management activities. This 60 minutes is in excess of all separately billable procedures. Discharge Plan Visit Data *Final* Discharge Date/Time: 11/08/18 15:35 Chief Complaint: Stroke Alert ED Provider: Kyung Baer Discharge Problem: Hemiplegia affecting right dominant side, Stroke-like symptoms Patient Disposition: Admitted As Inpatient Discharge Instructions Interventions: ED Discharge Assessment Last Done: 11/08/18 15:35 Discharge Problem: Hemiplegia affecting right dominant side Qualifiers: Hemiplegia type: unspecified type Hemiplegia etiology: unspecified etiology Qualified Code(s): G81.91 - Hemiplegia, unspecified affecting right dominant side The scribe's documentation has been prepared under my direction and personally reviewed by me in its entirety. I confirm that the note above accurately reflects all work, treatment, procedures, and medical decision making performed by me.
[2018-11-08] MEDS ORDERED: GADOBUTROL 65ML VIAL IV PRN (18:21)
--- NOTE | 2018-11-08 18:32 | Magnetic Resonance Report ---
MR brain wo/w con CLINICAL HISTORY: stroke like sx mental status change COMPARISON STUDY: No previous studies for comparison. TECHNIQUE: Utilizing a 1.5 Aline magnet and dedicated coil, multiplanar, multiecho imaging of the br ain was performed pre and postcontrast administration. IV administration of 6.4 mL of Gadavist contr ast was uneventful. FINDINGS: Diffusion images show no evidence for acute ischemic event. Increased cortical signal right inferior temporal lobe felt to be artifact. Signal characteristics otherwise are unremarkable. Ventricular system is midline. Postcontrast images are considered negative for enhancing lesion. Sella and parasellar regions are unremarkable. Internal auditory canals are symmetric. IMPRESSION: Normal study. The above report was generated using voice recognition software. It may contain grammatical, syntax or spelling errors. Electronically signed by: Buddy Trinidad M.D. 11/08/2018 6:31 PM
[2018-11-09] MEDS: SODIUM CHLORIDE 0.9% 1000ML 1,000 ML IV SCH (03:11)
--- NOTE | 2018-11-09 06:00 | Critical Care Progress Note ---
Date of Service November 09, 2018 Assessment & Plan (1) Hemiplegia affecting right dominant side: Reason Critically Ill: 48-year-old female here with a PMHx significant for ruptured ectopic , resolved right collapsed lung, dental surgery, and a single prior episode of weakness 1 week prior to admission who presented with right extremity weakness and qualitative sensory decrease following sedation for tooth extraction and who was admitted for stroke evaluation as/P TPA administrat ion.. Neuro - [facility]: NEGATIVE Left-sided weakness suspect 2/2 complex migraine, s/p TPA for initial concern of stroke with NIHSS of 7 at 1302 hrs. 11/08 Initial stroke scale of 7 improved to 0 on clinical exam. Patient feels 99.9% back to normal, improved right-sided strength. CTA without aneurysm, dissection, high-grade stenosis or proximal branch occlusion. CT-H shows no acute intracranial abnormality, no evidence of aneurysm, focal vessel occlusion, or significant stenosis of the intracranial arteries. MRI shows naf Day 2 post TPA orders per protocol Cardiac - No cardiac history per patient. Troponin negative. Hypertension Systolic goal less than 185, diastolic goal less than 105 Metoprolol tartrate 5 mg IV every 6 hours as needed for sys>185, diast >105, Hold for HR<60 or systolic <100 Respiratory - No pulmonary disease per patient Maintaining good oxygen saturation without tachypnea on room air Allergy - Recommend followup as outpatient for allergy testing to confirm aspirin allergy. History rxn of hives as a child. GI - Regular diet RENAL/LYTES - No significant electrolyte derangement Creatinine 0.74 replace lytes as needed. - No concerns at this time. ENDO - No acute concerns, glucose 94 on admit HEME - Stable H&H. Hemoglobin 13.1 on admit ID - No concerns for infection at this point. INTEGUMENTARY - No concerns, no lesions/rash LINES/IV ACCESS - Right and left antecubital PIVs intact. DVT PROPHYLAXIS - Ambulate Dispo: Stable for downgrade Thank you for allowing us to be part of this patient's care. Please refer to Dr. Osorio's documentation for any further recommendations. Supervising Physician Co-Signing Physician Notes Dr. Guerra was resident physician during care of patient. I separately evaluated patient for marquez portions of the history and the exam. I was present during the critical portion of medical decision making, and I discussed the case with the resident. I generally agree with the findings and plan. MRI reviewed, no significant findings, will complete additional portions of stroke work-up today. She does report occasional palpitations however she has not had palpitations while in the hospital. Family history of early cardiac disease in her father (age 45) feels close to baseline 5 out of 5 strength in both bilateral upper and lower extremities subjectively mildly weak in the right compared to left she is right-hand dominant. She has reported possible aspirin and penicillin allergy unknown reaction type, I would encourage the patient follow-up with a assistant kitchen manager to confirm aspirin allergy. Patient does not have strong indication for antiplatelet or systemic anticoagulation at this time, we have not seen any evidence of atrial fibrillation and given that there is no acute ischemic findings I am deferring aspirin and Plavix at this time. When we are 24 hours post TPA administration should be stable for transfer to remote telemetry. Subjective Stormy reports hse feels well today and "99.999%" back to normal. Denies fever, chills, sweats, focal weakness, global weakness, vision change, sensory change overnight. Denies epistaxis or uncontrolled bleeding from her tooth extraction site. Denies headache this morning. Endorses fatigue from sleeping poorly, otherwise denies other symptoms. No questions or concerns at time of visit. Review of Systems Review of Systems: Constitutional: Denies fever, chills, malaise, Eyes: Denies double vision, vision change, eye pain ENT: Denies ear pain, sore throat, sinus pain Cardiovascular: denies chest pain and palpitations today Respiratory: Denies shortness of breath, cough, sputum production, difficulty breathing Gastrointestinal: Denies abdominal pain, nausea, vomiting, constipation, diarrhea Genitourinary: Denies pain with urination, urinary urgency Musculoskeletal: Denies weakness and sensory change this morning Integumentary:Denies rash, lesions, bruising Physical Exam Physical Exam: General: A&Ox3. NAD. Cooperative. Able to follow one and two- step commands. No aphasia. Speech with normal volume, prosody and linear thought process. HEENT: Atraumatic, normocephalic. No facial asymmetry or facial droop. Facial sensation intact and symmetrical in all distributions. Facial strength intact and symmetrical. Pupils equal and reactive to light and accommodation. Extraocular movements intact without nystagmus or saccades. No visual field cuts. Pulm: CTAB A&P. -wheezes, -rales, -rhonchi. Symmetrical chest rise. No increase work of breathing. No respiratory distress. Cardiac: RRR, -mrg. Radial pulses intact and symmetrical. Abdominal: Nontender, nondistended, soft. BS present. Extremity: Right playground worker strength, interosseal, ankle dorsiflexion/plantarflexion, hip flexion, elbow flexion, shoulder internal/external rotation/flexion/extension 5/5. Sensation intact and symmetrical. Babinski downgoing. Patellar DTR 2+. Left playground worker strength, interosseal, elbow flexion/extension, shoulder internal/external rotation/flexion/extension, hip flexion, ankle plantar flexion/dorsiflexion 5/5. Sensation intact. Babinski downgoing. Patellar DTR 2+. NIHSS: Alert, oriented x3, blinks eyes and squeezes hands, EOM intact, no visual field cuts, no facial asymmetry, no left arm or leg drift, no right arm drift, no right leg drift, no ataxia, no sensory asymmetry, no aphasia, no dysarthria, no extinction/inattention. Overall score reduced to 0 from 7 on admit to ED. Results & Data Vital Signs (Past 12 Hours) Vital Signs Temp Pulse Resp BP Pulse Ox 11/09/18 05:00 69 13 119/82 98 11/09/18 04:00 68 14 114/76 98 11/09/18 03:00 74 16 103/86 99 11/09/18 02:00 64 18 132/70 97 11/09/18 01:00 69 16 126/74 98 11/09/18 00:00 36.6 C 91 H 24 115/78 97 11/08/18 23:19 72 11/08/18 23:00 75 17 113/77 97 11/08/18 19:00 88 17 158/95 H 98 11/08/18 18:30 85 12 134/90 99 11/08/18 18:25 84 19 125/104 H 99 11/08/18 18:24 87 PG Care Time/CCT Total # of Minutes Spent Total Time Spent with Patient: Total time spent is greater than 50% in coordination of care (as documented) at patient's floor/unit and/or counseling patient: Resident Activity Tracking Resident Involvement: Resident Care Provided Care Provided: Adult [facility] (1) Hemiplegia affecting right dominant side Hemiplegia etiology: unspecified etiology Hemiplegia type: unspecified type Qualified Code(s): G81.91 - Hemiplegia, unspecified affecting right dominant side
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
--- NOTE | 2018-11-09 12:55 | CT Scan Report ---
HEAD CT NONCONTRAST CT DOSE: 638.56 mGycm HISTORY: Follow-up stroke. Mental status change. TPA day 2 order TECHNIQUE: Multiaxial CT images of the head were performed without the use of intravenous contrast. A utomated exposure control was utilized for this study. A dose lowering technique was utilized adheri ng to the principles of ALARA. Comparison: Brain MRI 11/08/2018. Findings: The paranasal sinuses and mastoid air cells are clear. The calvarium and skull base are int act. The ventricles and sulci are within normal limits. There is no mass, hematoma, midline shift, or acute infarct. Impression: No acute intracranial abnormality. Electronically signed by: Ry Lozada M.D. 11/09/2018 12:53 PM
[2018-11-09 13:42] LABS: Basophils # (auto) 0.01 K/uL (0-0.2); Basophils % (auto) 0.1 %; Eosinophils # (auto) 0.05 K/uL (0-0.5); Eosinophils % (auto) 0.6 %; Hematocrit (blood only) 38.9 % (37-47); Hemoglobin 13.5 g/dL (12.0-16.0); Immature Granulocytes # (auto) 0.01 K/uL (0.00-0.02); Immature Granulocytes % (auto) 0.1 %; Lymphocytes # (auto) 1.73 K/uL (1.2-3.4); Lymphocytes % (auto) 21.3 %; Mean Corpuscular Hemoglobin 31.3 pg (25-34); Mean Corpuscular Hgb Conc 34.7 g/dL (32-36); Mean Corpuscular Volume 90.3 fL (80-100); Mean Platelet Volume 9.9 fL (7.4-10.4); Monocytes # (auto) 0.68 K/uL (0.11-0.59); Monocytes % (auto) 8.4 %; Neutrophils # (auto) 5.66 K/uL (1.4-6.5); Neutrophils % (auto) 69.5 %; Platelet Count 270 K/uL (130-400); RDW Coefficient of Variation 12.7 % (11.5-14.5); RDW Standard Deviation 42.3 fL (36.4-46.3); Red Blood Count 4.31 M/uL (4.2-5.4); White Blood Count 8.14 K/uL (4.8-10.8)
[2018-11-09 13:51] LABS: Prothrombin Time 10.5 Seconds (9.0-12.0)
[2018-11-09 14:05] LABS: BUN Creatinine Ratio 8.6 (10-20); Blood Urea Nitrogen 6 mg/dl (7-18); Calcium 8.6 mg/dl (8.5-10.1); Carbon Dioxide 26 mmol/L (21-32); Chloride 110 mmol/L (98-107); Est GFR (Non-African American) 98.3; Glucose 116 mg/dl (70-99); Potassium 4.1 mmol/L (3.5-5.1); Sodium 141 mmol/L (136-145)
[2018-11-09 14:09] LABS: Chol HDL Ratio 3; Cholesterol 172 mg/dl (0-200); HDL Cholesterol 53 mg/dl; LDL Cholesterol Calculated 100 mg/dl; Phosphorus 2.4 mg/dl (2.5-4.9); Triglycerides 95 mg/dl (0-150); VLDL Cholesterol 19 mg/dl
[2018-11-09 14:22] LABS: Estimated Average Glucose 108 mg/dl; Hemoglobin A1C 5.4 % (4.5-5.6)
--- NOTE | 2018-11-09 21:38 | Hospitalist Progress Note ---
Date of Service November 09, 2018 Assessment & Plan (1) Stroke-like symptoms: s/p TPA at ER presentation. symptoms (right arm/leg paralysis) started to resolve within 30 minutes of TPA to her recollection. entire presentation given no stroke risk factors quite unusual. cannot rule out embolic event that was aborted by the TPA ("aborted stroke"). cannot rule out complex migraine but highly unlikely (had been having headaches last week/early this week but no headache at presentation and no h/o migraine). cannot rule out cerebral vasospasm. entire stroke w/u - echo, tele, MRI brain, CTA head/neck - normal. LDL 100. a1c <5.5%. spoke with Dr Cano - questionable whether for her to take plavix for secondary prevention. consider statin. watch overnight. will recommend 30-day event monitor to r/o PAF as she reports palpitations at times at home. (2) Hemiplegia affecting right dominant side: see above resolved spent 30-40 minutes at bedside answering numerous questions, giving hypotheses, explaining importance of observation, etc Subjective patient feels great today. no headache, no weakness or numbness, no speech or swallowing issues. she again states she NEVER had facial weakness, dysarthria or aphasia, or dysphagia. wants to go home. tele normal overnight. no h/o migraines. has numerous questions about what happened and our thoughts on etiology. Review of Systems Respiratory: no dyspnea Cardiovascular: no chest pain Gastrointestinal: no abdominal pain Physical Exam Constitutional: well developed and well nourished; no acute distress Eyes: PERRL ENMT: external ear and nose normal, oropharynx normal Respiratory: normal respiratory effort, lungs clear to auscultation Cardiovascular: Rate/Rhythm: regular rate and regular rhythm Heart Sounds: normal S1 and normal S2; no murmur Vessels: posterior tibial pulses present and dorsalis pedis pulses present; no JVD Gastrointestinal (Abdomen): normal bowel sounds, soft, nontender, no hepatosplenomegaly Neurologic: no focal motor deficits Motor/Sensory: no pronator drift Cranial Nerves: PERRL sensation intact to light touch Psychiatric: Orientation: alert and oriented x 3 Affect: + anxious affect Results & Data Vital Signs (Past 12 Hours) Vital Signs Temp Pulse Pulse Resp BP Pulse Ox 11/09/18 19:00 36.7 C 98 H 18 132/94 96 11/09/18 16:00 86 11/09/18 15:57 36.9 C 101 H 20 123/77 93 11/09/18 13:27 36.8 C 98 H 18 129/92 98 11/09/18 13:00 91 H 11/09/18 11:58 88 20 139/86 95 11/09/18 11:00 96 H 18 126/90 96 11/09/18 10:00 76 20 140/93 97 Laboratory Results Laboratory Results - last 24 hr 11/08/18 11/09/18 11/09/18 22:30 13:29 13:29 WBC 8.14 RBC 4.31 Hgb 13.5 Hct 38.9 MCV 90.3 MCH 31.3 MCHC 34.7 RDW Std Deviation 42.3 RDW Coeff of Josephine 12.7 Plt Count 270 MPV 9.9 Immature Gran % (Auto) 0.1 Neut % (Auto) 69.5 Lymph % (Auto) 21.3 [place] % (Auto) 8.4 Eos % (Auto) 0.6 Baso % (Auto) 0.1 Immature Gran # (Auto) 0.01 Neut # (Auto) 5.66 Lymph # (Auto) 1.73 [place] # (Auto) 0.68 H Eos # (Auto) 0.05 Baso # (Auto) 0.01 PT INR Sodium 141 Potassium 4.1 Chloride 110 H Carbon Dioxide 26 Anion Gap 5.0 BUN 6 L Creatinine 0.72 Est Cr Clr Drug Dosing Not Reportable Est GFR ( Amer) 114.0 Est GFR (Non-Af Amer) 98.3 BUN/Creatinine Ratio 8.6 L Glucose 116 H POC Glucose 121 H Estimat Average Glucose Hemoglobin A1c Calcium 8.6 Phosphorus 2.4 L Magnesium 2.0 Triglycerides 95 Cholesterol 172 LDL Cholesterol, Calc 100 VLDL Cholesterol, Calc 19 HDL Cholesterol 53 Cholesterol/HDL Ratio 3 11/09/18 11/09/18 13:29 13:29 WBC RBC Hgb Hct MCV MCH MCHC RDW Std Deviation RDW Coeff of Josephine Plt Count MPV Immature Gran % (Auto) Neut % (Auto) Lymph % (Auto) [place] % (Auto) Eos % (Auto) Baso % (Auto) Immature Gran # (Auto) Neut # (Auto) Lymph # (Auto) [place] # (Auto) Eos # (Auto) Baso # (Auto) PT 10.5 INR 1.0 Sodium Potassium Chloride Carbon Dioxide Anion Gap BUN Creatinine Est Cr Clr Drug Dosing Est GFR ( Amer) Est GFR (Non-Af Amer) BUN/Creatinine Ratio Glucose POC Glucose Estimat Average Glucose 108 Hemoglobin A1c 5.4 Calcium Phosphorus Magnesium Triglycerides Cholesterol LDL Cholesterol, Calc VLDL Cholesterol, Calc HDL Cholesterol Cholesterol/HDL Ratio PG Care Time/CCT Total # of Minutes Spent Total Time Spent with Patient: Total time spent is greater than 50% in c oordination of care (as documented) at patient's floor/unit and/or counseling patient: (1) Hemiplegia affecting right dominant side Hemiplegia etiology: unspecified etiology Hemiplegia type: unspecified type Qualified Code(s): G81.91 - Hemiplegia, unspecified affecting right dominant side
[2018-11-10 07:12] VITALS: TEMP 98.6; O2SAT 97
[2018-11-10 08:21] LABS: BUN Creatinine Ratio 10.7 (10-20); Blood Urea Nitrogen 8 mg/dl (7-18); Calcium 9.1 mg/dl (8.5-10.1); Carbon Dioxide 26 mmol/L (21-32); Chloride 110 mmol/L (98-107); Est GFR (African American) 106.8; Est GFR (Non-African American) 92.1; Glucose 93 mg/dl (70-99); Potassium 3.8 mmol/L (3.5-5.1); Sodium 142 mmol/L (136-145)
--- NOTE | 2018-11-10 08:37 | Neurology Progress Note ---
Date of Service November 10, 2018 Assessment & Plan (1) Stroke-like symptoms: (2) Hemiplegia affecting right dominant side: Patient had an episode November 08 of right arm and leg paralysis without facial involvement, sensory symptoms, speech or vision problems. This would be a highly unusual stroke pattern. Nevertheless, I could not exclude an embolic event that was resolved by tPA. Echocardiogram showed no source of embolus however. There is no shunt present either. The patient has no significant cerebral vascular disease of an older or new nature and CT angiography of the head neck was normal. Although her blood pressure was high on admission she has no history of hypertension, diabetes, dyslipidemia, or cigarette smoking. Therefore she has no risk factors for ischemic stroke. Her blood pressure is back to normal today Even though she did not have much of a headache I cannot exclude a complicated migraine. This whole event may be vasospasm related triggered by her procedure and increased blood pressure. Patient has considerable stress and stress may be a related factor for her issues as well. Currently she is back to normal clinically with no weakness. She has no focal neurologic findings, meningeal signs, or encephalopathy. Recommendations: 1. Since I do not believe this was an ischemic event and she has no significant risk factors, she does not need an anti-platelet medication. 2. There is no indication for anticoagulation as well. 3. Her blood pressure was mildly elevated but is improved today. There is no need for an antihypertensive but this should be followed as an outpatient. 4. I have encouraged her to pace herself this week and not overdo activities. We had a long discussion regarding this. 5. Otherwise increase activity as able and I will follow as an outpatient in 2- 3 weeks. In addition, she needs a primary care physician. Overall, I spent a total of 40 minutes with this case including review of records, review of MRI films, direct evaluation the patient at bedside, and discussion of the case with the patient at bedside, and Dr. Farmer, including differential diagnosis and treatment options. Subjective Patient is doing well with no new problems or issues. She feels 100 percent better. She has no weakness, numbness, or tingling in her arms or legs. She does a little bit of soreness along her left lower jaw where she had dental surgery 2 days ago. Interestingly, she gets little bit of lightheadedness/shortness of breath for a 2nd or 2 when she 1st stands up and this resolves. Otherwise she has no symptoms like that otherwise. She denies headache, she has no double vision, and has no confusion. Nursing reports no events or issues overnight. She has been monitored and is in normal sinus rhythm all night in the 70s and 80s. CBC was unremarkable and Chem profile showed a glucose of 116. Hemoglobin A1c was 5.4. Triglycerides 95, total cholesterol 172, LDL 100, HDL 53. Repeat CT scan of the head yesterday was unremarkable. Blood pressure today is 116/75. Echocardiogram was unremarkable with no source of embolus and no shunt. Physical Exam Physical Exam: The patient is awake and alert, with normal speech and communication. Mood is normal and affect is appropriate. Thought processes are intact with good long and short-term memory. There is no facial droop. Extraocular eye muscles are intact without nystagmus. Gait is normal with good arm swing turns and stance. Stance is stable eyes open or closed and she can tandem walk, toe walk, and heel walk. Coordination of the arms is normal without tremor or ataxia. Motor strength is 5/5 in all major muscle groups of the arms and legs bilaterally, both proximally and distally. Results & Data Vital Signs (Past 12 Hours) Vital Signs Temp Pulse Pulse Resp BP BP BP 11/10/18 07:11 37.0 C 77 20 116/75 11/10/18 03:05 36.7 C 89 18 116/77 11/10/18 01:14 79 11/09/18 23:00 36.3 C L 89 18 133/79 Pulse Ox 11/10/18 07:11 97 11/10/18 03:05 98 11/10/18 01:14 11/09/18 23:00 95 PG Care Time/CCT Total # of Minutes Spent Total Time Spent with Patient: Total time spent is greater than 50% in coordination of care (as documented) at patient's floor/unit and/or counseling patient: (1) Hemiplegia affecting right dominant side Hemiplegia etiology: unspecified etiology Hemiplegia type: unspecified type Qualified Code(s): G81.91 - Hemiplegia, unspecified affecting right dominant side
[2018-11-10 10:42] VITALS: BP 116/77; PULSE 77
--- NOTE | 2018-11-16 14:11 | Discharge Summary ---
Date of Service date of admission - 11/08/18 date of discharge - 11/10/18 Admission HPI Per Admitting Provider 48 y/o F c/o sudden onset R UE/LE paralysis. Pt was having dental implants done today with Dr. Roa. She was sedated with propofol and as she was coming out of this around 11a she was noted to have R UE/LE paralysis. She has no prior hx of similar issue. She states that for the last few days she has been taking ibuprofen for what she thought was a stress headache. She is not usually one for headaches but this is a busy time of year for her at work and her children went back to school today as well, so she thought it was stress related. Ibuprofen was not really helping. She cannot tell me where her headaches were located. No vision issues, n/v. She states she was still able to go to work. She had also noted some R sided tingling in her extremities the last few days. Pt states that while she was having the paralysis in the dental office she had full sensation to her R UE/LE. Pt was evaluated by telemed in the ED and it was determined that she should be given tpa. At this point, pt does have ability to move her RLE and RUE now, but not as she normally would. She can move all of her fingers and her hand, but still with issues picking up her arm. Prior to this, they had been unable to move at all. Pt denies fever, SOB, chest pain, abd pain, n/v/c/d, LE pain or swelling. Principal Diagnosis RUE/RLE paralysis - resolved - etiology uncertain Discharge Exam Constitutional well developed and well nourished; no acute distress Eyes PERRL ENMT external ear and nose normal, oropharynx normal Respiratory normal respiratory effort, lungs clear to auscultation Cardiovascular Rate/Rhythm: regular rate and regular rhythm Heart Sounds: normal S1 and normal S2; no murmur Vessels: posterior tibial pulses present and dorsalis pedis pulses present; no JVD Gastrointestinal (Abdomen) normal bowel sounds, soft, nontender, no hepatosplenomegaly Neurologic deep tendon reflexes 2+ bilaterally and moves all extremities; no focal motor deficits Speech / Cognition: no expressive aphasia and no receptive aphasia Motor/Sensory: no pronator drift Cranial Nerves: PERRL and normal facial strength Gait: no ataxic gait Coordination: normal [id number] test sensation intact to light touch all 4 extremities Psychiatric Orientation: alert and oriented x 3 Affect: + anxious affect Discharge Data Allergies Allergy/AdvReac Type Severity Reaction Status Date / Time aspirin Allergy Intermediate Verified 11/08/18 13:42 Penicillins Allergy Intermediate HIVES Verified 11/08/18 13:42 Consultations 1. [facility] 2. Critical care 3. PT, OT, speech therapy Ordered Studies 1. CT head x 2 - normal, no ICH. 2. CTA head/neck - normal; no aneurysm, dissection or focal stenosis. 3. MRI brain - normal; no acute or old stroke; no mass; no ICH. 4. echocardiogram - normal EF; no PFO; no vegetation; no thrombus. Normal valve function. Hospital Course (1) Stroke-like symptoms: s/p TPA at ER presentation after consultation with telestroke services at [facility]. Symptoms (right arm/leg paralysis) started to resolve within 30 minutes of TPA administration to her recollection. Her entire presentation was quite unusual given that she has no stroke risk factors. Cannot rule out embolic event that was aborted by the TPA ("aborted stroke"). Cannot rule out complex migraine but highly unlikely (had been having headaches last week/early this week but no headache at presentation and no h/o migraine). Cannot rule out cerebral vasospasm. Entire stroke work-up including echo, telemetry, MRI brain, CTA head/neck - all normal. LDL was 100 on lipid panel. Hemoglobin a1c was <5.5%. Neurology was consulted, and after looking at her case in its entirety, it was felt that her presenting symptoms may have been due to an episode of cerebral vasospasm rather than an embolic or thrombotic event. Since vasospasm was suspected it was decided to NOT place her on antiplatelet agents at discharge. For the same reason it was felt that statin therapy was NOT indicated at this time. In light of the unusual presentation and the extensive negative work-up to date I recommend a 30-day event monitor to r/o PAF as she reported palpitations periodically at home. If PAF is found then perhaps we could make a case that she had suffered an unusual embolic event rather than vasospasm. (2) Hemiplegia affecting right dominant side: see above in "stroke-like symptoms" fully resolved with normal MRI brain and normal discharge physical exam. (3) Elevated blood-pressure reading without diagnosis of hypertension: At time of ER presentation her SBPs were moderately high (140-160 range). These normalized without intervention. For the remainder of her stay her SBPs stayed in the 110-130 range. It is possible that anxiety provoked by the seriousness of the event caused her BPs to be high. She reported no prior history of HTN. This will need to be followed carefully as an outpatient. Total Time Total Time Spent Total Time Spent (In Minutes): 40 Total Time Includes: Examination of the Patient, Discharge Planning, Medication Reconciliation and Communication With Other Providers Discharge Plan Discharge Items Patient Disposition: Home - Self-Care Reason For Visit: Right sided paralysis; concern for STROKE Discharge Diagnosis: Concern for stroke leading to "TPA" administration (clot- busting medication) -- resolution of right arm/leg paralysis. Discharge Goals: Diagnostic testing Activity: As commented below Activity Comment: for the next 4-5 days take it easy; no heavy exertional activities Lifting: Gradually increase as tolerated Bathing: No limitations Exercise/Sports: Gradually increase as tolerated Driving/Machine Use Comment: ok to resume in 48 hours; start with short car rides Non-emergency contact: Primary Care Provider and Neurologist Call non-emergency contact if: you have any medication questions, your symptoms worsen and your temperature is above 100.5 Follow-up/Referrals: Reji Cano III, MD [Physician] - (see Dr Cano in 3-4 weeks) Lorraine Lira PA-C [Physician [employer] Custodian] - 02/16/19 2:00 pm (Please, follow up at [facility]rology Office with Lorraine Lira PA-C on ThursdayFebruary 16 at 2:00 pm. *The office is located at [facility] in [place]. If you need to reschedule this appointment, call the office at [phone].) Shelby Osorio DO [Primary Care Provider] - 11/16/18 12:45 pm (Please, follow up with Dr. Shelby Osorio on ThursdayNovember 16 at 1:00 pm (arrive 12:45 pm). *She will be your new primary care provider. The office is located at [address] [facility] in [place]. If you have any questions, call her office at [phone].) Diet: Regular Addtl Provider Instructions: You were admitted to the hospital after having received TPA due to concern for an acute stroke causing right arm & right leg paralysis. Following TPA you were sent to the ICU and your right arm/leg symptoms resolved. MRI brain did NOT show any definitive stroke; the MRI was completely normal. The CAT scans of the arteries of the brain and neck were entirely normal with no plaque build-up in any vessel. Your cholesterol panel showed an LDL ("bad" cholesterol) of 100 and HDL ("good" cholesterol) level of 53. Both of these values are very good. Your echocardiogram (heart ultrasound) was normal. Your telemetry heart monitoring while hospitalized did NOT show a.fib or other abnormal heart rhythms. The exact cause of your event was uncertain. You were evaluated by Dr Cano, neurology, and he is thinking that this may have been an episode of "spasm" of an artery in the brain leading to your symptoms. At this time we are NOT recommending antiplatelet drugs (aspirin, plavix, etc) or cholesterol medication. Finally, you have no evidence of diabetes or high blood pressure. Recommendations - 1. to be complete please undertake a 30-day event monitor at home. This will be mailed to you within 1 week; instructions will be included. Results will go to your family doctor. We are looking for any abnormal heart rhythm that could have contributed to your event. 2. take it easy for the next 4-5 days. No strenuous activities. follow-up - see separate section Additional stroke instructions - Risk Factors for Stroke: You can reduce your chances of stroke by working with your medical provider to adopt a healthy lifestyle. Some specific ways to lower your chance of stroke are: * If you are a smoker, now is the time to stop smoking cigarettes * If you are diabetic, improve the control of your blood sugars * Avoid excessive amounts of alcohol * Control high blood pressure * Lose weight if you are overweight * Be sure to lead an active lifestyle * Eat a healthy diet low in salt, cholesterol and fat You should know about other risk factors for stroke that you are unable to control. These include: * Age 55 years or older * Male gender * Certain racial groups: , or / * Family History of Stroke, Mini stroke or Heart Attack * Sickle Cell Disease Follow Up: It is important for you to keep your follow up appointments with your medical provider. Who to Call and When: Medical Emergencies: Call 911 immediately if you experience any of the following warning signs and symptoms of Stroke: * Sudden numbness or weakness of the face, arm or leg, especially on one side of the body * Sudden confusion, trouble speaking or understanding * Sudden trouble seeing in one or both eyes * Sudden trouble walking, dizziness, loss of balance or coordination * Sudden severe headache with no cause Do not delay calling 911 if you experience any warning signs or symptoms of a stroke. Delay in seeking medical attention may affect what treatments can be given to you. . Prescriptions: Discontinued propofol 10 mg/mL Emulsion 180 mg IV UD RF: 0 Stand-Alone Forms: [facility], Work/School Release (Inpt) Discharge Orders: Discharge Order (Routine); Ordered 11/10/18 Ordered By: Yogesh Farmer Admission Data Admit Date/Time: 11/08/18 14:35 Attending Provider: Yogesh Farmer Admit Provider: Magdalena Potter Primary Care Provider: Shelby Osorio Other Providers: Magdalena Potter ; Von Osorio Emile Pierre III Service: Telemetry Medical Other Interventions: Discharge Summary Assessment (RN) Last Done: 11/10/18 10:38 Pending Studies at Discharge: No DC Date/Time DO NOT enter until pt leaves facility: 11/10/18 11:26
== END 2018-11-10 11:26 | disposition home or self-care (01) | DRG 62 ==
LOC: ED 12:03 → SUATTDRO 14:35 → 1E 14:35 → 2N 11-09 12:29

== ENCOUNTER 2023-06-03 00:20 | Observation (INO) ==
--- NOTE | 2023-06-03 00:53 | Emergency Department Note ---
Impression & Plan Chest pain, Stroke-like symptoms, Blurred vision, left eye ED Provider Note HISTORY OF PRESENT ILLNESS: Patient is a 52-year-old female presenting with diffuse chest pain and left eye vision changes. Patient reports she sat down to watch TV with her at 2200 this evening when she developed diffuse chest pain. Reports that it felt like a pulsatile "flush" up into her head and she then developed left eye vision changes. She reports that the vision in her left eye is blurry. She still able to make out shapes but is unable to see as clearly as she normally is. She states that she has bilateral hand numbness and tingling and is also having left-sided facial tingling. She had a stroke 4 years ago. She is not currently on any antiplatelet or anticoagulation therapy. She reports her Plavix was recently stopped. She denies any chest pain on assessment in the emergency department. Denies any back pain or abdominal pain. Denies any nausea or vomiting. ROS: as above PHYSICAL EXAM: Constitutional: Patient appears in no acute distress. HENT: Head: Normocephalic and atraumatic. Eyes: EOMI, PERRL Mouth/Throat: Mucous membranes moist. Neck: Trachea midline. Neck supple. Cardiovascular: Tachycardic with regular rhythm. No murmurs, rubs or gallops. Intact distal pulses. Pulmonary/Chest: No respiratory distress. Breath sounds clear and equal bilaterally. No wheezes or rales. No chest wall tenderness to palpation. Abdominal: Abdomen soft, no tenderness, rebound or guarding. Musculoskeletal: No edema, tenderness or deformity noted. Skin: Warm and dry. No rash, erythema, pallor or cyanosis Psychiatric: Appropriate mood and affect for situation. Neurological: Alert and keenly responsive. Facies symmetric. Able to raise eyebrows, close eyes, smile, puff mouth, stick out tongue, move tongue left and right and raise palate symmetrically. Able to shrug shoulders. PERRLA. SILT to forehead below eye and at jawline. Can hear soft noise bilaterally. Strength 5/5 in bilateral upper and lower extremities. SILT throughout bilateral upper and lower extremities. MDM: - Vitals signs showed hypertension and tachycardia. - History obtained via patient. History as above. - Chronic conditions affecting care: HTN; hemiplegia of R side; CVA - Differential diagnoses include, but are not limited to: aortic dissection; ACS; CVA; intracranial hemorrhage; electrolyte abnormality; complex migraine - Order placed for continuous cardiac monitoring. At this time, monitor showed rate of 103 bpm with normal sinus rhythm, per my interpretation. - External medical records reviewed. History and physical dated 11/08/2018 was reviewed. Patient was admitted at that time for strokelike symptoms after presenting with right-sided hemiplegia and was given tPA in the ER. Her imaging workup at that time was negative. She had a negative MRI at that time - EKG interpreted by myself showed normal sinus rhythm. Rate tachycardic at 117 bpm. QT 330. No acute ischemic changes. - Laboratory workup interpreted by myself showed normal WBC; hypokalemia (K 3.3); normal troponin - CXR negative for pneumonia, per my interpretation - Patient taken over for CTA head/neck as well as CT of the chest to assess for dissection. Called by stat rad radiologist that the images were grossly unremarkable for obvious stroke, dissection or occlusion. - Discussed case with [facility] telestroke provider on- call, Dr. Price at 1:40 AM. Discussed the patient's case and he reports that he will assess the patient on the teleneurology cart. - On repeat assessment, patient is symptom free at 2:50. - Dr. Price assessed the patient and then called me back at 02:56. Reports it's a "stroke like episode." May be a migraine equivalent. No TNK. Could also be hypertension mediated. Recommended treating blood pressure with dose of labetalol (ordered). Recommended MRI with and without contrast and further stroke-like workup. Recommended ESR and PROSPER for assessment of immunological source. Patient has aspirin allergy. Recommended plavix 300 mg load (ordered), followed by 75 mg daily. Recommended follow up in [facility] neurology clinic after discharge. - Discussion was had with employment case manager about patient's case and need for admission - Hospitalist consulted for admission - [facility] ASSESSMENT AND PLAN: Diagnosis: chest pain; blurry vision left eye; stroke like symptoms Plan: admit Past Med/Surg History Medical History (Updated 06/03/23 @ 03:04 by Fiorella Roach MD) Elevated blood-pressure reading without diagnosis of hypertension DVT prophylaxis Received intravenous tissue plasminogen activator (tPA) within last 24 hours Stroke-like symptoms Hemiplegia affecting right dominant side No pertinent past medical history Surgical History History of endometrial ablation Family History Father , age 78 of pulmonary fibrosis Myocardial infarction, Onset Age: 42 CABG Coronary heart disease Mother Coronary heart disease Other No pertinent family history in first degree relatives Social History Smoking Status: Never smoker Hx Alcohol Use: Yes (occasional mixed drink) Alcohol type: wine Alcohol Intake Frequency Comment: Once per week or less. Hx Substance Use: No Preferred Language: Cymraes Communication Ability: Effective Visual Impairment: No Limitations Beliefs That Will Affect Care: None Current Living Situation: Spouse current occupational status: employed current occupation: executive assistant in the [employer] Feels Safe at Home: Yes Assistive Devices: None Allergies Allergies Allergy/AdvReac Type Severity Reaction Status Date / Time aspirin Allergy Intermediate Unknown Verified 07/16/22 08:40 Penicillins Allergy Intermediate HIVES Verified 07/16/22 08:40 Home Meds Home Medications Medication Instructions Recorded Confirmed aspirin 81 mg tablet,delayed 81 mg PO DAILY 02/16/19 07/16/22 release (Aspir-) rosuvastatin 10 mg tablet (Crestor) 10 mg PO DAILY 02/16/19 07/16/22 clopidogrel 75 mg tablet (Plavix) 75 mg PO DAILY 09/27/19 07/16/22 multivitamin [Daily Multi-Vitamin] PO 07/16/22 07/16/22 Results & Data (ED) Vital Signs Vital Signs - 24 hr 06/03/23 00:20 06/03/23 00:25 06/03/23 00:40 Temperature 36.4 C L Temperature Source Temporal Artery Scan Pulse Rate 118 H 101 H Pulse Rate from SpO2 Sensor 103 H Respiratory Rate 20 16 Blood Pressure 189/118 H 206/125 H Blood Pressure Mean 141 152 Pulse Oximetry 99 99 Oxygen Delivery Method Room Air Room Air Room Air Sepsis Recent Fever Within 48 Hours No Sepsis New/Unexplained Change in Mental Status No Sepsis Action Taken by Nursing No Action Required 06/03/23 00:44 06/03/23 01:02 06/03/23 01:30 Temperature Temperature Source Pulse Rate 113 H 103 H 90 Pulse Rate from SpO2 Sensor 102 H 91 H Respiratory Rate 17 13 Blood Pressure 197/118 H 171/107 H Blood Pressure Mean 144 128 Pulse Oximetry 99 97 Oxygen Delivery Method Room Air Room Air Sepsis Recent Fever Within 48 Hours Sepsis New/Unexplained Change in Mental Status Sepsis Action Taken by Nursing 06/03/23 01:45 06/03/23 02:17 06/03/23 02:31 Temperature Temperature Source Pulse Rate 91 H 106 H 95 H Pulse Rate from SpO2 Sensor 91 H Respiratory Rate 18 26 H 16 Blood Pressure 170/105 H 200/119 H 191/121 H Blood Pressure Mean 126 146 144 Pulse Oximetry 97 98 99 Oxygen Delivery Method Room Air Room Air Sepsis Recent Fever Within 48 Hours Sepsis New/Unexplained Change in Mental Status Sepsis Action Taken by Nursing Laboratory Data 06/03/23 00:35 06/03/23 00:35 Lab Results 06/03/23 06/03/23 06/03/23 Range/Units 00:35 00:43 01:10 WBC 10.17 (4.8-10.8) K/ul RBC 5.00 (4.20-5.40) M/uL Hgb 15.0 (12.0-16.0) g/dl POC Hgb 15.6 (12.0-16.0) g/dl Hct 44.6 (37.0-47.0) % POC Hct 46 (37-47) % MCV 89.2 (80.0-100.0) fL MCH 30.0 (25.0-34.0) pg MCHC 33.6 (32.0-36.0) g/dL RDW Std Deviation 41.3 (36.4-46.3) fL RDW Coeff of Josephine 12.6 (11.5-14.5) % Plt Count 331 (130-400) K/uL MPV 10.2 (9.4-12.4) fL Immature Gran % (Auto) 0.3 % Neut % (Auto) 64.1 % Lymph % (Auto) 26.7 % [place] % (Auto) 7.3 % Eos % (Auto) 1.2 % Baso % (Auto) 0.4 % Neut # (Auto) 6.52 H (1.40-6.50) K/uL Lymph # (Auto) 2.72 (1.20-3.40) K/uL [place] # (Auto) 0.74 H (0.11-0.59) K/uL Eos # (Auto) 0.12 (0.00-0.50) K/uL Baso # (Auto) 0.04 (0.00-0.20) K/uL Immature Gran # (Auto) 0.03 (0.01-0.20) K/uL PT 10.3 (9.0-12.0) Seconds INR 0.9 (0.9-1.1) APTT 36 H (21-31) Seconds PTT Ratio 1.3 POC Sodium 143 (135-144) mmol/L Sodium 140 (136-145) mmol/L POC Potassium 3.2 L (3.3-5.0) mmol/L Potassium 3.3 L (3.5-5.1) mmol/L POC Chloride 106 (101-112) mmol/L Chloride 108 H (98-107) mmol/L Carbon Dioxide 25 (21-32) mmol/L POC Total CO2 26 (24-31) mmol/L Anion Gap 7 (3-11) POC Anion Gap 15.0 L (16-25) mmol/L POC BUN 12 (7-18) mg/dl BUN 13 (6-23) mg/dl Creatinine 0.81 (0.6-1.2) mg/dl POC Creatinine 0.8 (0.6-1.3) mg/dl Est Cr Clr Drug Dosing 71.0 ml/min Est GFR ( Amer) 96.1 ml/min Est GFR (Non-Af Amer) 82.9 ml/min BUN/Creatinine Ratio 16.0 (10-20) Glucose 105 H (70-99(Fasting)) mg/dl POC Glucose 95 (70-99) mg/dl POC Glucose (other) 110 H (70-99) mg/dl Calcium 10.1 (8.6-10.3) mg/dl POC Ioniz Calcium Ari 1.27 (1.12-1.32) mmol/l Magnesium 2.1 (1.7-2.4) mg/dl Total Bilirubin 0.4 (0.2-1.0) mg/dl AST 16 (13-39) U/L ALT 15 (7-52) U/L Alkaline Phosphatase 114 H (34-104) U/L Troponin I High Sens 2.9 (0-14) pg/ml Total Protein 7.8 (6.0-8.3) gm/dl Albumin 4.8 (3.4-5.0) gm/dl Globulin 3.0 (2.5-4.0) gm/dl Albumin/Globulin Ratio 1.6 (0.9-2) HCG, Quant 1 mIU/ml Administered Medications Discontinued Medications Ioversol (Optiray 320 125ml) 125 ml IV ONCE ONE Stop: 06/03/23 01:08 Last Admin: 06/03/23 01:07 Dose: 116 ml Documented By: CLARKE Imaging Data Radiologist's Impression: Head CTA 06/03/23 00:36 CR Exam(s): CTA HEAD W/WO Contrast IV Amt: 116 ml optiray 320 EXAM: CT Angiography Head Without and With Intravenous Contrast CLINICAL HISTORY: Reason for exam: neuro deficit, acute stroke suspected. TECHNIQUE: Axial computed tomographic angiography images of the head without and with intravenous contrast. CTDI is 37.61 mGy and DLP is 624.41 mGy-cm. Automated exposure control was utilized for the study. A dose lowering technique was utilized adhering to the principles of ALARA. MIP reconstructed images were created and reviewed. CONTRAST: Patient received 116 ml optiray 320 of IV contrast COMPARISON: No relevant prior studies available. FINDINGS: VASCULATURE: Right internal carotid artery: No acute findings. Intracranial segment is patent with no significant stenosis. No aneurysm. Right anterior cerebral artery: Unremarkable. No occlusion or significant stenosis. No aneurysm. Right middle cerebral artery: Unremarkable. No occlusion or significant stenosis. No aneurysm. Right posterior cerebral artery: origin of the right posterior cerebral artery, variant anatomy. No occlusion or significant stenosis. No aneurysm. Right vertebral artery: Unremarkable as visualized. Left internal carotid artery: No acute findings. Intracranial segment is patent with no significant stenosis. No aneurysm. Left anterior cerebral artery: Unremarkable. No occlusion or significant stenosis. No aneurysm. Left middle cerebral artery: Unremarkable. No occlusion or significant stenosis. No aneurysm. Left posterior cerebral artery: Unremarkable. No occlusion or significant stenosis. No aneurysm. Left vertebral artery: Unremarkable as visualized. Basilar artery: Unremarkable. No occlusion or significant stenosis. No aneurysm. HEAD: Brain: No acute findings. No hemorrhage. No edema. Normal enhancement. Ventricles: Unremarkable. No ventriculomegaly. Bones/joints: No acute fracture. Soft tissues: Unremarkable. Sinuses: Unremarkable as visualized. No acute sinusitis. Mastoid air cells: Unremarkable as visualized. No mastoid effusion. IMPRESSION: No acute findings in the arteries of the head/brain. Communications: Call Doctor Stroke Electronically signed by: Guerda Reid M.D. 06/03/23 01:31 AM Neck CTA 06/03/23 00:36 CR Exam(s): CTA NECK With Contrast IV Amt: 116 ml optiray 320 EXAM: CT Angiography Neck With Intravenous Contrast CLINICAL HISTORY: Reason for exam: neuro deficit, acute stroke suspected. TECHNIQUE: Routine carotid CT angiography protocol was performed with intravenous contrast. NASCET criteria using the distal ICAs for comparison were used for evaluation of stenoses. CTDI is 16.62 mGy and DLP is 8.31 mGy-cm. Automated exposure control was utilized for the study. A dose lowering technique was utilized adhering to the principles of ALARA. MIP reconstructed images were created and reviewed. CONTRAST: Patient received 116 ml optiray 320 of IV contrast COMPARISON: CTA Neck dated 02/16/2019 CTA head and neck FINDINGS: VASCULATURE: Right common carotid artery: Unremarkable. No occlusion or significant stenosis. No dissection. Right internal carotid artery: Mild atherosclerotic calcification of the right carotid bulb. No occlusion or significant stenosis. Extracranial segment is patent with no occlusion or significant stenosis. No dissection. Right external carotid artery: Unremarkable. No occlusion. Right vertebral artery: Unremarkable. No occlusion or significant stenosis. No dissection. Left common carotid artery: Unremarkable. No occlusion or significant stenosis. No dissection. Left internal carotid artery: Mild atherosclerotic calcifications of the left carotid bulb. No occlusion or significant stenosis. Extracranial segment is patent with no occlusion or significant stenosis. No dissection. Left external carotid artery: Unremarkable. No occlusion. Left vertebral artery: Dominant larger left vertebral artery. No occlusion or significant stenosis. No dissection. NECK: Bones/joints: Unremarkable. No acute fracture. Soft tissues: Unremarkable. Lung apices: Clear. CAROTID STENOSIS REFERENCE USING NASCET CRITERIA: % ICA stenosis = (1 - narrowest ICA diameter/diameter of distal cervical ICA) x 100. Mild - <50% stenosis. Moderate - 50-69% stenosis. Severe - 70-94% stenosis. Near occlusion - 95-99% stenosis. Occluded - 100% stenosis. IMPRESSION: No acute findings in the arteries of the neck. Communications: Call Doctor Stroke Electronically signed by: Guerda Reid M.D. 06/03/23 01:41 AM Chest CTA 06/03/23 00:40 Exam(s): CTA CHEST IV Amt: 116 ml optiray 320 EXAM: CT Angiography Chest With Intravenous Contrast CLINICAL HISTORY: Reason for exam: r/o dissection. TECHNIQUE: Axial computed tomographic angiography images of the chest with intravenous contrast. CTDI is 13.31 mGy and DLP is 762.67 mGy-cm. Automated exposure control was utilized for the study. A dose lowering technique was utilized adhering to the principles of ALARA. MIP reconstructed images were created and reviewed. COMPARISON: No relevant prior studies available. FINDINGS: Pulmonary arteries: Unremarkable. No pulmonary embolism. Aorta: No acute findings. No thoracic aortic aneurysm. Lungs: Linear atelectasis or scarring in the right middle lobe. New line otherwise lungs clear. No mass. Pleural space: Unremarkable. No significant effusion. No pneumothorax. Heart: Unremarkable. No cardiomegaly. No significant pericardial effusion. No evidence of RV dysfunction. Bones/joints: No acute fracture. No dislocation. Soft tissues: Bilateral breast implants. Lymph nodes: Unremarkable. No enlarged lymph nodes. IMPRESSION: No acute findings in the visualized arteries of the chest. Electronically signed by: Guerda Reid M.D. 06/03/23 01:46 AM Discharge Plan Visit Data Chief Complaint: Chest Pain ED Provider: Fiorella Roach Discharge Problem: Chest pain, Stroke-like symptoms, Blurred vision, left eye Forms Stand Alone Forms: [facility] [employer] Prescriptions Prescriptions: No Action clopidogrel [Plavix] 75 mg tablet 75 mg PO DAILY multivitamin [Daily Multi-Vitamin] PO aspirin [Aspir-81] 81 mg Tablet,Delayed Release (Dr/Ec) 81 mg PO DAILY rosuvastatin [Crestor] 10 mg tablet 10 mg PO DAILY Referrals Referrals: Kishore Walsh [Primary Care Provider] -
[2023-06-03 01:05] LABS: Basophils # (auto) 0.04 K/uL (0.00-0.20); Basophils % (auto) 0.4 %; Eosinophils # (auto) 0.12 K/uL (0.00-0.50); Eosinophils % (auto) 1.2 %; Hematocrit (blood only) 44.6 % (37.0-47.0); Immature Granulocytes # (auto) 0.03 K/uL (0.01-0.20); Immature Granulocytes % (auto) 0.3 %; Lymphocytes # (auto) 2.72 K/uL (1.20-3.40); Lymphocytes % (auto) 26.7 %; Mean Corpuscular Hgb Conc 33.6 g/dL (32.0-36.0); Mean Corpuscular Volume 89.2 fL (80.0-100.0); Mean Platelet Volume 10.2 fL (9.4-12.4); Monocytes # (auto) 0.74 K/uL (0.11-0.59); Monocytes % (auto) 7.3 %; Neutrophils # (auto) 6.52 K/uL (1.40-6.50); Neutrophils % (auto) 64.1 %; Platelet Count 331 K/uL (130-400); RDW Coefficient of Variation 12.6 % (11.5-14.5); RDW Standard Deviation 41.3 fL (36.4-46.3); White Blood Count 10.17 K/ul (4.8-10.8)
[2023-06-03 01:07] LABS: Albumin Globulin Ratio 1.6 (0.9-2); Albumin Level 4.8 gm/dl (3.4-5.0); Bilirubin,Total 0.4 mg/dl (0.2-1.0); Calcium 10.1 mg/dl (8.6-10.3); Est GFR (African American) 96.1 ml/min; Est GFR (Non-African American) 82.9 ml/min; Magnesium 2.1 mg/dl (1.7-2.4); Potassium 3.3 mmol/L (3.5-5.1); Total Protein 7.8 gm/dl (6.0-8.3)
[2023-06-03] MEDS: OPTIRAY 320 125ml IV ONE (01:07)
[2023-06-03 01:13] LABS: Troponin I High Sensitivity 2.9 pg/ml (0-14)
[2023-06-03 01:22] LABS: iSTAT Creatinine 0.8 mg/dl (0.6-1.3); iSTAT Hemoglobin 15.6 g/dl (12.0-16.0); iSTAT Ionized Calcium 1.27 mmol/l (1.12-1.32); iSTAT Potassium 3.2 mmol/L (3.3-5.0)
--- NOTE | 2023-06-03 01:32 | CT Scan Report ---
Exam(s): CTA HEAD W/WO Contrast IV Amt: 116 ml optiray 320 EXAM: CT Angiography Head Without and With Intravenous Contrast CLINICAL HISTORY: Reason for exam: neuro deficit, acute stroke suspected. TECHNIQUE: Axial computed tomographic angiography images of the head without and with intravenous contrast. CTDI is 37.61 mGy and DLP is 624.41 mGy-cm. Automated exposure control was utilized for the study. A dose lowering technique was utilized adhering to the principles of ALARA. MIP reconstructed images were created and reviewed. CONTRAST: Patient received 116 ml optiray 320 of IV contrast COMPARISON: No relevant prior studies available. FINDINGS: VASCULATURE: Right internal carotid artery: No acute findings. Intracranial segment is patent with no significant stenosis. No aneurysm. Right anterior cerebral artery: Unremarkable. No occlusion or significant stenosis. No aneurysm. Right middle cerebral artery: Unremarkable. No occlusion or significant stenosis. No aneurysm. Right posterior cerebral artery: origin of the right posterior cerebral artery, variant anatomy. No occlusion or significant stenosis. No aneurysm. Right vertebral artery: Unremarkable as visualized. Left internal carotid artery: No acute findings. Intracranial segment is patent with no significant stenosis. No aneurysm. Left anterior cerebral artery: Unremarkable. No occlusion or significant stenosis. No aneurysm. Left middle cerebral artery: Unremarkable. No occlusion or significant stenosis. No aneurysm. Left posterior cerebral artery: Unremarkable. No occlusion or significant stenosis. No aneurysm. Left vertebral artery: Unremarkable as visualized. Basilar artery: Unremarkable. No occlusion or significant stenosis. No aneurysm. HEAD: Brain: No acute findings. No hemorrhage. No edema. Normal enhancement. Ventricles: Unremarkable. No ventriculomegaly. Bones/joints: No acute fracture. Soft tissues: Unremarkable. Sinuses: Unremarkable as visualized. No acute sinusitis. Mastoid air cells: Unremarkable as visualized. No mastoid effusion. IMPRESSION: No acute findings in the arteries of the head/brain. Communications: Call Doctor Stroke Electronically signed by: Guerda Reid M.D. 06/03/23 01:31 AM
[2023-06-03 01:36] LABS: INR 0.9 (0.9-1.1); Partial Thromboplastin Ratio 1.3; Partial Thromboplastin Time 36 Seconds (21-31); Prothrombin Time 10.3 Seconds (9.0-12.0)
--- NOTE | 2023-06-03 01:41 | CT Scan Report ---
Exam(s): CTA NECK With Contrast IV Amt: 116 ml optiray 320 EXAM: CT Angiography Neck With Intravenous Contrast CLINICAL HISTORY: Reason for exam: neuro deficit, acute stroke suspected. TECHNIQUE: Routine carotid CT angiography protocol was performed with intravenous contrast. NASCET criteria using the distal ICAs for comparison were used for evaluation of stenoses. CTDI is 16.62 mGy and DLP is 8.31 mGy-cm. Automated exposure control was utilized for the study. A dose lowering technique was utilized adhering to the principles of ALARA. MIP reconstructed images were created and reviewed. CONTRAST: Patient received 116 ml optiray 320 of IV contrast COMPARISON: CTA Neck dated 02/16/2019 CTA head and neck FINDINGS: VASCULATURE: Right common carotid artery: Unremarkable. No occlusion or significant stenosis. No dissection. Right internal carotid artery: Mild atherosclerotic calcification of the right carotid bulb. No occlusion or significant stenosis. Extracranial segment is patent with no occlusion or significant stenosis. No dissection. Right external carotid artery: Unremarkable. No occlusion. Right vertebral artery: Unremarkable. No occlusion or significant stenosis. No dissection. Left common carotid artery: Unremarkable. No occlusion or significant stenosis. No dissection. Left internal carotid artery: Mild atherosclerotic calcifications of the left carotid bulb. No occlusion or significant stenosis. Extracranial segment is patent with no occlusion or significant stenosis. No dissection. Left external carotid artery: Unremarkable. No occlusion. Left vertebral artery: Dominant larger left vertebral artery. No occlusion or significant stenosis. No dissection. NECK: Bones/joints: Unremarkable. No acute fracture. Soft tissues: Unremarkable. Lung apices: Clear. CAROTID STENOSIS REFERENCE USING NASCET CRITERIA: % ICA stenosis = (1 - narrowest ICA diameter/diameter of distal cervical ICA) x 100. Mild - <50% stenosis. Moderate - 50-69% stenosis. Severe - 70-94% stenosis. Near occlusion - 95-99% stenosis. Occluded - 100% stenosis. IMPRESSION: No acute findings in the arteries of the neck. Communications: Call Doctor Stroke Electronically signed by: Guerda Reid M.D. 06/03/23 01:41 AM
--- NOTE | 2023-06-03 01:47 | CT Scan Report ---
Exam(s): CTA CHEST IV Amt: 116 ml optiray 320 EXAM: CT Angiography Chest With Intravenous Contrast CLINICAL HISTORY: Reason for exam: r/o dissection. TECHNIQUE: Axial computed tomographic angiography images of the chest with intravenous contrast. CTDI is 13.31 mGy and DLP is 762.67 mGy-cm. Automated exposure control was utilized for the study. A dose lowering technique was utilized adhering to the principles of ALARA. MIP reconstructed images were created and reviewed. COMPARISON: No relevant prior studies available. FINDINGS: Pulmonary arteries: Unremarkable. No pulmonary embolism. Aorta: No acute findings. No thoracic aortic aneurysm. Lungs: Linear atelectasis or scarring in the right middle lobe. New line otherwise lungs clear. No mass. Pleural space: Unremarkable. No significant effusion. No pneumothorax. Heart: Unremarkable. No cardiomegaly. No significant pericardial effusion. No evidence of RV dysfunction. Bones/joints: No acute fracture. No dislocation. Soft tissues: Bilateral breast implants. Lymph nodes: Unremarkable. No enlarged lymph nodes. IMPRESSION: No acute findings in the visualized arteries of the chest. Electronically signed by: Guerda Reid M.D. 06/03/23 01:46 AM
--- NOTE | 2023-06-03 02:54 | History & Physical Report ---
Date of Service June 03, 2023 Assessment & Plan (1) Stroke-like symptoms: Plan: Etiology not entirely clear - ddx including but not limited to TIA, stroke, hypertensive urgency, complex migraine, hypercoagulability, autoimmune. Thus far stroke work up negative. Case discussed with [facility] tele neurostroke. See their note for further documentation. MRI w and w/o ordered. CTA H/N/C without signs of dissection or emboli. Given plavix load 300 mg. Give one time dose of labetalol per tele stroke rec as there may be a component of hypertensive urgency/crisis contributing to presentation. If concerned for cerebrovascular incident would allow permissive hypertension. [facility] to see. Restart Plavix 75 mg QD. Consider high-intensity dosing of statin. Likely can d/c home in the morning if MRI normal. Neurology consult - appreciate recs f/u MRI w/wo plans to f/u with [facility] neurology outpatient continue statin for risk reduction restart Plavix at 75 mg QD hypercoagulability panel, ESR, PROSPER (2) Elevated blood-pressure reading without diagnosis of hypertension: Plan: If persistently hypertensive outpatient consider antihypertensive initiation (3) Blurred vision, left eye: Plan: Resolved (4) Chest pain: Plan: Resolved Plan Code status: full DVT ppx: Plavix loaded FENGI: Heart Healthy Dispo: Tele unit History of Present Illness Chief Complaint: stroke like symptoms Primary Care Provider: Kishore Walsh 52 y/o female with a PMHx of CVA treated with tPA presents with stroke like symptoms. Patient with diffuse chest pain and left eye blurry vision. She was also having SOB, left sided facial tingling, and bilateral hand/arm numbness and tingling. Patient evaluated for stroke/dissection with CTA Head, Neck, and Chest. Tele neuro stroke evaluated patient. Recommended MRI with and w/o, Plavix load, and one time dose of labetalol. Patient did have a CVA treated with tPA 4 years ago. Patient is on statin therapy. No longer on Plavix or ASA. Upon my interview patient is symptom free. No vision changes, chest pain, headaches, nausea/vomiting, diarrhea or constipation. No recent illnesses. Feeling well prior to onset of symptoms. Generally BP well controlled 110s-120s. Allergies Allergy/AdvReac Type Severity Reaction Status Date / Time aspirin Allergy Intermediate Unknown Verified 07/16/22 08:40 Penicillins Allergy Intermediate HIVES Verified 07/16/22 08:40 Home Medications Medication Instructions Recorded Confirmed Type aspirin 81 mg tablet,delayed 81 mg PO DAILY 02/16/19 07/16/22 History release (Aspir-) rosuvastatin 10 mg tablet (Crestor) 10 mg PO DAILY 02/16/19 07/16/22 History multivitamin [Daily Multi-Vitamin] PO 07/16/22 07/16/22 History clopidogrel 75 mg tablet (Plavix) 75 mg PO DAILY #30 tabs 06/03/23 Rx nifedipine 30 mg tablet,extended 30 mg PO QAM #30 tabs 06/03/23 Rx release 24 hr (Procardia XL) Past Med/Surg History Medical History (Updated 06/03/23 @ 10:49 by Von Rivas MD) Elevated blood-pressure reading without diagnosis of hypertension DVT prophylaxis Received intravenous tissue plasminogen activator (tPA) within last 24 hours Stroke-like symptoms Hemiplegia affecting right dominant side No pertinent past medical history Surgical History History of endometrial ablation Family History Father , age 78 of pulmonary fibrosis Myocardial infarction, Onset Age: 42 CABG Coronary heart disease Mother Coronary heart disease Other No pertinent family history in first degree relatives Social History Smoking Status: Never smoker Second Hand Exposure: No; Do You Dip or Chew Tobacco: No; Tobacco Cessation Education Requested by Patient: No Hx Alcohol Use: Yes Alcohol type: hard liquor Alcohol Intake Frequency Comment: Once per week or less. Hx Substance Use: No Preferred Language: Tajik Communication Ability: Effective Visual Impairment: No Limitations Linker Up Required: No Beliefs That Will Affect Care: None Current Living Situation: Spouse current occupational status: employed current occupation: pharmacy sales assistant in the [employer] Other Information That Helps Us Care for You: No Feels Safe at Home: Yes Safety Concerns: Feels Safe At This Time Assistive Devices: None Review of Systems 2 Review of Systems: See HPI Physical Exam 2 Physical Exam: Gen: well appearing female patient in NAD HEENT: AT NC MMM Resp: CTAB no wheezing no increased work of breathing CV: RRR no m/r/g clinically well perfused Abd: soft non-tender non-distended MSK: no obvious deformities Skin: no rashes or bruising Neuro: alert and oriented, no focal deficits noted on exam Psych: appropriate mood and affect Results & Data Results & Data Vital Signs (Past 12 Hours) Vital Signs Temp Pulse Resp BP Pulse Ox O2 Del Method 06/03/23 02:31 95 H 16 191/121 H 99 06/03/23 02:17 106 H 26 H 200/119 H 98 Room Air 06/03/23 01:45 91 H 18 170/105 H 97 Room Air 06/03/23 01:30 90 13 171/107 H 97 Room Air 06/03/23 01:02 103 H 17 197/118 H 99 Room Air 06/03/23 00:44 113 H 06/03/23 00:40 101 H 16 206/125 H 99 Room Air 06/03/23 00:25 36.4 C L 118 H 20 189/118 H 99 Room Air 06/03/23 00:20 Room Air Laboratory Results 06/03/23 00:35 06/03/23 00:35 Diagnostic Findings Head CTA 06/03/23 00:36 FINDINGS: VASCULATURE: Right internal carotid artery: No acute findings. Intracranial segment is patent with no significant stenosis. No aneurysm. Right anterior cerebral artery: Unremarkable. No occlusion or significant stenosis. No aneurysm. Right middle cerebral artery: Unremarkable. No occlusion or significant stenosis. No aneurysm. Right posterior cerebral artery: origin of the right posterior cerebral artery, variant anatomy. No occlusion or significant stenosis. No aneurysm. Right vertebral artery: Unremarkable as visualized. Left internal carotid artery: No acute findings. Intracranial segment is patent with no significant stenosis. No aneurysm. Left anterior cerebral artery: Unremarkable. No occlusion or significant stenosis. No aneurysm. Left middle cerebral artery: Unremarkable. No occlusion or significant stenosis. No aneurysm. Left posterior cerebral artery: Unremarkable. No occlusion or significant stenosis. No aneurysm. Left vertebral artery: Unremarkable as visualized. Basilar artery: Unremarkable. No occlusion or significant stenosis. No aneurysm. HEAD: Brain: No acute findings. No hemorrhage. No edema. Normal enhancement. Ventricles: Unremarkable. No ventriculomegaly. Bones/joints: No acute fracture. Soft tissues: Unremarkable. Sinuses: Unremarkable as visualized. No acute sinusitis. Mastoid air cells: Unremarkable as visualized. No mastoid effusion. IMPRESSION: No acute findings in the arteries of the head/brain. Neck CTA 06/03/23 00:36 FINDINGS: VASCULATURE: Right common carotid artery: Unremarkable. No occlusion or significant stenosis. No dissection. Right internal carotid artery: Mild atherosclerotic calcification of the right carotid bulb. No occlusion or significant stenosis. Extracranial segment is patent with no occlusion or significant stenosis. No dissection. Right external carotid artery: Unremarkable. No occlusion. Right vertebral artery: Unremarkable. No occlusion or significant stenosis. No dissection. Left common carotid artery: Unremarkable. No occlusion or significant stenosis. No dissection. Left internal carotid artery: Mild atherosclerotic calcifications of the left carotid bulb. No occlusion or significant stenosis. Extracranial segment is patent with no occlusion or significant stenosis. No dissection. Left external carotid artery: Unremarkable. No occlusion. Left vertebral artery: Dominant larger left vertebral artery. No occlusion or significant stenosis. No dissection. NECK: Bones/joints: Unremarkable. No acute fracture. Soft tissues: Unremarkable. Lung apices: Clear. IMPRESSION: No acute findings in the arteries of the neck. Chest CTA 06/03/23 00:40 FINDINGS: Pulmonary arteries: Unremarkable. No pulmonary embolism. Aorta: No acute findings. No thoracic aortic aneurysm. Lungs: Linear atelectasis or scarring in the right middle lobe. New line otherwise lungs clear. No mass. Pleural space: Unremarkable. No significant effusion. No pneumothorax. Heart: Unremarkable. No cardiomegaly. No significant pericardial effusion. No evidence of RV dysfunction. Bones/joints: No acute fracture. No dislocation. Soft tissues: Bilateral breast implants. Lymph nodes: Unremarkable. No enlarged lymph nodes. IMPRESSION: No acute findings in the visualized arteries of the chest. Supervising Physician Co-Signing Physician Notes Attending addendum: I have physically seen this patient, have supervised the medical residents activities, and agree with the H&P unless as otherwise noted. Assessment and Plan: Strokelike symptoms/history of CVA- Patient evaluated by [facility] neurostroke team The patient will be admitted to telemetry for serial cardiac enzymes, serial EKG's, cardiac rhythm monitoring and a 2-D echocardiogram with Dopplers. CT head negative CTA head and neck negative Recommendation for MRI brain with and without contrast History of being on Plavix CAD Plavix 300 mg load, and then 75 mg daily Consult PT/OT/speech/neurology Permissive hypertension overnight Order arterial hypercoagulability studies Symptoms have resolved Hyperlipidemia- On rosuvastatin 10 mg daily Check a fasting lipid panel and hemoglobin A1c Hypertension- Hold nifedipine to allow permissive hypertension overnight Resident Activity Tracking Resident Involvement: Resident Care Provided Care Provided: Adult Hospital Medicine
[2023-06-03] MEDS ORDERED: LABETALOL HCL IV 5 MG/ML 20ML IV STA (02:59)
[2023-06-03] MEDS: GADOBUTROL 65ML VIAL IV ONE (04:41)
[2023-06-03] MEDS: CLOPIDOGREL BISULFATE 300 MG TAB PO STA (05:22)
[2023-06-03] MEDS: LABETALOL HCL IV 5 MG/ML 20ML IV SCH (05:25)
--- NOTE | 2023-06-03 05:54 | Magnetic Resonance Report ---
Exam(s): MRI HEAD W/WO Contrast IV Amt: 6cc gadavist EXAM: MR Head Without and With Intravenous Contrast CLINICAL HISTORY: Reason for exam: stroke r/o. TECHNIQUE: Magnetic resonance images of the head/brain without and with intravenous contrast in multiple planes. CONTRAST: Patient received 6cc gadavist of IV contrast COMPARISON: Comparison made to prior head CT from June 03, 2023. FINDINGS: Brain: Minimal nonspecific white matter changes. The flow voids at the base of the brain are intact. No mass. No hemorrhage. No acute infarct. Cerebellar tonsillar ectopia. There is normal enhancement of the brain parenchyma. The dural venous sinuses are patent. Ventricles: Unremarkable. No ventriculomegaly. Bones/joints: Unremarkable. No acute fracture. Sinuses: Unremarkable as visualized. No acute sinusitis. Mastoid air cells: Unremarkable as visualized. No mastoid effusion. Orbits: Unremarkable as visualized. IMPRESSION: No evidence of acute intracranial pathology. Minimal nonspecific white matter changes. Electronically signed by: Brielle Lund MD 06/03/23 05:53 AM
[2023-06-03] MEDS ORDERED: ACETAMINOPHEN 325 MG TAB PO PRN (06:57)
[2023-06-03] MEDS ORDERED: POLYETHYLENE (MIRALAX) 17 GM PACK PO PRN (06:57)
--- NOTE | 2023-06-03 07:52 | XRay Report ---
SINGLE VIEW CHEST CLINICAL HISTORY: Neurological deficit. Stroke like symptoms. FINDINGS: 2 AP, portable, upright chest radiographs are compared to study dated 06/30/2008. The cardio mediastinal silhouette is unremarkable. The lungs and pleural spaces are clear. No pneumothorax is se en. The bony thorax is grossly intact. IMPRESSION: No active disease in the chest. ACT 112: Negative or not required by law. Electronically signed by: Ldaarius Jameson M.D. 06/03/2023 7:51 AM
--- NOTE | 2023-06-03 10:42 | Neurology Consultation ---
Date of Consultation June 03, 2023 Assessment & Plan (1) Blurred vision, left eye: (2) Stroke-like symptoms: (3) Elevated blood-pressure reading without diagnosis of hypertension: (4) Complicated migraine: Plan 52-year-old female presenting with left-sided chest pain, head and neck pressure, and transient vision disturbance/loss affecting the left half of the visual field of the left eye only. The symptoms occur in the context of significant hypertension, although no formal diagnosis of hypertension as an outpatient. No evidence of stroke or significant vascular lesion on MRI or CTA of the head and neck. She does have bilateral origin of the posterior cerebral arteries and a relatively small basilar artery. These findings are a normal anatomic variant. I note that she had a similar presentation to the [facility] in February 2019, and also note her previous admission in October 2018 for right-sided weakness, also without evidence of acute stroke on MRI. I suspect this patient's current presentation is related to transient vasospasm in the context of hypertensive urgency. Complicated migraine is also possible given her previous similar presentations with headache and associated neurologic signs and symptoms. Although I suspect her recurrent symptoms are most likely due to vasospasm, hypertensive urgency, versus complicated migraine, a TIA cannot be completely excluded at this time. I would recommend restarting antiplatelet medication in this patient. She does endorse a history of intolerance to aspirin. Therefore, I would recommend clopidogrel 75 mg/day for the time being. I would also recommend 30-day mobile cardiac outpatient telemetry. Would also consider obtaining an up-to-date transthoracic echocardiogram with bubble study. Would also check an up-to-date lipid panel. Would continue with Crestor 10 mg/day, patient informs me she has been taking this medication. Patient should probably follow-up again with her stroke specialist at [facility]. However, as above, no objective evidence of stroke on MRI with this presentation, or with her previous presentation in 2019. I can follow her locally as well. May see me or one of our NICK's for a hospital follow-up in 2 to 3 weeks after discharge. Would consider starting verapamil for migraine prevention which may have some efficacy for complicated migraine and ocular migraine prevention. She will need ongoing follow-up with her PCP for management of possible hypertension. Please call with any questions. Thank you for the consult. History of Present Illness Reason for Consultation: stroke? Requesting Physician: Doc Attending Physician: Leobardo Del Cid MD History of Present Illness The patient is a 52-year-old female who presented to the emergency department overnight with a chief complaint of left-sided chest pain, feeling of neck pressure or pulsation, and loss of peripheral vision for the left eye only that lasted for a few hours and resolved. She did not have associated change in speech or weakness of the arms or legs. She also complains of fairly persistent headache over the past 1 to 2 weeks, bifrontal location, some throbbing character. She endorses a history of intermittent headache but denies more typical migrainous symptoms such as nausea or light or sound sensitivity. She has had similar headaches in the past. I note that she was admitted to [facility] in October 2018 for strokelike symptoms characterized by right-sided weakness, sparing the face, no vision symptoms with that episode. She was seen in neurological consultation at that time by Dr. Cano. She had an unremarkable imaging evaluation, no evidence of acute or subacute stroke on MRI. She did have some follow-up with the stroke specialist at [facility]. Her her diagnosis has not been entirely clear although cryptogenic stroke was considered given that she had persistent right-sided weakness. I see that she had presented again to the [facility] in February 2019 with headache, squeezing and pulsating pain, and transient vision disturbance for the left eye, although only lasting about 30 seconds at that time. This particular presentation seems similar to her current admission to the [facility]. She had been prescribed clopidogrel for about 2 years after her initial episode in October 2018. Again, the recent episode occurs in the context of a fairly persistent headache for the past 1 to 2 weeks and stressors. She is notably hypertensive during this current admission, and I see that she was hypertensive during her previous admission in 2019 to the [facility]. Yet, she has not been diagnosed with hypertension as an outpatient and is not on an antihypertensive. She does take rosuvastatin. Again, no longer taking clopidogrel. This morning, she feels completely fine, no headache, neck pain, head or neck pressure, or any vision disturbance or other neurologic signs or symptoms. Allergies Allergy/AdvReac Type Severity Reaction Status Date / Time aspirin Allergy Intermediate Unknown Verified 07/16/22 08:40 Penicillins Allergy Intermediate HIVES Verified 07/16/22 08:40 Home Medications Medication Instructions Recorded Confirmed Type aspirin 81 mg tablet,delayed 81 mg PO DAILY 02/16/19 07/16/22 History release (Aspir-) rosuvastatin 10 mg tablet (Crestor) 10 mg PO DAILY 02/16/19 07/16/22 History clopidogrel 75 mg tablet (Plavix) 75 mg PO DAILY 09/27/19 07/16/22 History multivitamin [Daily Multi-Vitamin] PO 07/16/22 07/16/22 History Patient History Medical History (Updated 06/03/23 @ 10:49 by Von Rivas MD) Elevated blood-pressure reading without diagnosis of hypertension DVT prophylaxis Received intravenous tissue plasminogen activator (tPA) within last 24 hours Stroke-like symptoms Hemiplegia affecting right dominant side No pertinent past medical history Surgical History History of endometrial ablation Family History Father , age 78 of pulmonary fibrosis Myocardial infarction, Onset Age: 42 CABG Coronary heart disease Mother Coronary heart disease Other No pertinent family history in first degree relatives Social History Smoking Status: Never smoker Second Hand Exposure: No; Do You Dip or Chew Tobacco: No; Tobacco Cessation Education Requested by Patient: No Hx Alcohol Use: Yes Alcohol type: hard liquor Alcohol Intake Frequency Comment: Once per week or less. 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 Other Information That Helps Us Care for You: No Feels Safe at Home: Yes Safety Concerns: Feels Safe At This Time Assistive Devices: None Review of Systems Constitutional: no fever and no chills Eyes: as per Subjective / HPI Ear, Nose, Mouth, Throat: no hearing loss Respiratory: no cough and no dyspnea Cardiovascular: no chest pain and no palpitations Gastrointestinal: no nausea and no vomiting Genitourinary: no decreased urination Musculoskeletal: as per Subjective / HPI and + neck pain Integumentary: no rash and no lesions Neurologic: as per Subjective / HPI and + headache(s); no gait abnormality, no unsteadiness, no localized weakness, no generalized weakness, no lack of coordination, no tremor(s), no abnormal movements, no seizure-like activity, no syncope, no abnormal speech, no confusion and no memory loss Psychiatric: no depression and no anxiety Hematologic / Lymphatic: no easy bleeding and no easy bruising Exam (Neuro) Constitutional: well developed and well nourished; no acute distress Eyes: normal visual hernandez by confrontation, PERRL and EOM intact bilaterally; no nystagmus Neurologic: Oriented to:: Person, Place and Time Memory: Short Term Intact and Remote Intact Attention: Span Intact and Concentration Intact Speech Fluency: negative Dysarthria or Dysfluency Speech Aphasia: negative Aphasia Fund of Knowledge: Current Events, Past History and Vocabulary Cranial Nerves: Normal II, III, IV, , V, VII, VIII, IX, X, XI and XII Motor Strength: Normal Lower Extremities and Normal Upper Extremities Motor Tone: Normal Lower Extremities and Normal Upper Extremities Muscle Bulk/Involuntary Movements: No Involuntary Movements; negative Muscle Atrophy Sensation: Light Touch Intact, Pain/Temperature Intact and Proprioception Intact Coordination: Normal; negative Limited Balance, Dysdiadochokinesia, Finger-Nose Abnormal or Heel-Dorsey Abnormal Deep Tendon Reflexes: Rt Triceps: 2+, Lt Triceps: 2+, Rt Biceps: 2+, Lt Biceps: 2+, Rt Brachioradialis: 2+, Lt Brachioradialis: 2+, Rt Patellar: 2+, Lt Patellar: 2+, Rt Ankle: 2+ and Lt Ankle: 2+ Special Tests: negative Babinski Present Gait: Normal Station and Gait Results & Data Vital Signs (Past 12 Hours) Vital Signs Temp Pulse Pulse Resp BP BP Pulse Ox 06/03/23 07:49 159/99 H 06/03/23 06:57 36.7 C 96 H 18 161/112 H 95 06/03/23 05:07 16 160/128 H 98 06/03/23 04:00 88 16 160/128 H 97 06/03/23 02:31 95 H 16 191/121 H 99 06/03/23 02:17 106 H 26 H 200/119 H 98 06/03/23 01:45 91 H 18 170/105 H 97 06/03/23 01:30 90 13 171/107 H 97 06/03/23 01:02 103 H 17 197/118 H 99 06/03/23 00:44 113 H 06/03/23 00:40 101 H 16 206/125 H 99 06/03/23 00:25 36.4 C L 118 H 20 189/118 H 99 06/03/23 00:20 O2 Del Method 06/03/23 07:49 06/03/23 06:57 Room Air 06/03/23 05:07 06/03/23 04:00 06/03/23 02:31 06/03/23 02:17 Room Air 06/03/23 01:45 Room Air 06/03/23 01:30 Room Air 06/03/23 01:02 Room Air 06/03/23 00:44 06/03/23 00:40 Room Air 06/03/23 00:25 Room Air 06/03/23 00:20 Room Air Laboratory Results WBC 10.17, hemoglobin 15.0, hematocrit 44.6, platelet count 331, ESR 12, sodium 140, potassium 3.3, BUN 13, creatinine 0.81, glucose 105, calcium 10.1, magnesium 2.1, AST 16, ALT 15. Lipid panel from October 2018 reviewed. Triglycerides 95, cholesterol 172, LDL 100, HDL 53. Diagnostic Findings CTA of the head and neck reveals a small basilar artery and origin of the bilateral posterior cerebral arteries, variant anatomy. CTA of the neck unr emarkable. Brain MRI unremarkable, no evidence of acute or subacute stroke, no evidence of hemorrhage, no parenchymal abnormality. I independently reviewed these images. Electrocardiogram reveals sinus tachycardia, 117 bpm. Previous outpatient cardiac monitoring completed in November 2018 was normal. An echocardiogram completed in October 2018 was unremarkable as well. No PFO. No potential cardioembolic source identified. Coding Level of Care Code 93586 INT INP/OBS CARE 3/75MIN Diagnoses Blurred vision, left eye H53.8 Stroke-like symptoms R29.90 Elevated blood-pressure reading without diagnosis of hypertension R03.0 Complicated migraine G43.109 Time Spent (min) 80 Comment Total time includes patient contact, chart review, counseling, note preparation
[2023-06-03] MEDS: NIFEdipine EXTENDED REL 30 MG TABCR PO SCH (13:15)
[2023-06-03] MEDS: lisinopril 2.5 MG TAB PO SCH (13:16)
--- NOTE | 2023-06-03 15:48 | Electrocardiogram Report ---
Test Reason : Blood Pressure : / mmHG Vent. Rate : 117 BPM Atrial Rate : 117 BPM P-R Int : 162 ms QRS Dur : 098 ms QT Int : 330 ms P-R-T Axes : 057 -79 038 degrees QTc Int : 460 ms Sinus tachycardia Possible Left atrial enlargement Left axis deviation Incomplete right bundle branch block Abnormal ECG When compared with ECG of 16-FEB-2019 17:19, Vent. rate has increased BY 40 BPM Confirmed by Madan Day ([id number]) on 06/03/2023 3:48:51 PM Referred By: REFERRED SELF Confirmed By:Antoni Day
--- NOTE | 2023-06-03 17:40 | Discharge Summary ---
Date of Service June 03, 2023 Admission HPI Per Admitting Provider 52 y/o female with a PMHx of CVA treated with tPA presents with stroke like symptoms. Patient with diffuse chest pain and left eye blurry vision. She was also having SOB, left sided facial tingling, and bilateral hand/arm numbness and tingling. Patient evaluated for stroke/dissection with CTA Head, Neck, and Chest. Tele neuro stroke evaluated patient. Recommended MRI with and w/o, Plavix load, and one time dose of labetalol. Patient did have a CVA treated with tPA 4 years ago. Patient is on statin therapy. No longer on Plavix or ASA. Upon my interview patient is symptom free. No vision changes, chest pain, headaches, nausea/vomiting, diarrhea or constipation. No recent illnesses. Feeling well prior to onset of symptoms. Generally BP well controlled 110s-120s. Discharge Data Allergies Allergy/AdvReac Type Severity Reaction Status Date / Time aspirin Allergy Intermediate Unknown Verified 07/16/22 08:40 Penicillins Allergy Intermediate HIVES Verified 07/16/22 08:40 Consultations 06/03/23 02:38 ED Decision to Admit Stat 06/03/23 03:20 Consult Neurology Routine Ordered Studies 06/03/23 00:36 CT angio head wo/w Stat CT angio neck with con Stat 06/03/23 00:40 CT angio chest PE protocol Stat 06/03/23 03:15 MRI Brain [MR brain wo/w con] Urgent 06/03/23 13:54 duplex renal artery Urgent Discharge Plan Discharge Items Patient Disposition: Home - Self-Care Reason For Visit: STROKE R/O Discharge Diagnosis: stroke r/o Activity: Resume your previous activity Non-emergency contact: Primary Care Provider Call non-emergency contact if: you have any medication questions Follow-up/Referrals: Kishore Walsh [Primary Care Provider] - Diet: Regular Addtl Attending Provider Instructions: Good afternoon Mrs. Vargas, You were seen for elevated blood pressure which could have provoked your symptoms. The possible diagnosis can be either complex migraine or a vasospasm. A third possibility could be a transient ischemic event. All of these diagnosis fit the bill as they do not cause permanent brain damage. I will prescribe you verapamil which will help with migraines and vasospasm. The plavix will help prevent a stroke if this indeed was a TIA. Will recommend a close followup with your PCP preferably in 1 week. Please keep a diary of your blood pressure in the AM. It was a pleasure to meet you. Best wishes, Nolberto Rayo MD Pending Studies at Discharge: No Stand-Alone Forms: [facility], Smoking Cessation Medications and DC Order Prescriptions: New nifedipine [Procardia XL] 30 mg Tablet Extended Release 24hr 30 mg PO QAM Qty: 30 0RF Continued multivitamin [Daily Multi-Vitamin] PO aspirin [Aspir-81] 81 mg Tablet,Delayed Release (Dr/Ec) 81 mg PO DAILY rosuvastatin [Crestor] 10 mg tablet 10 mg PO DAILY clopidogrel [Plavix] 75 mg tablet 75 mg PO DAILY Qty: 30 0RF Discharge Orders: Discharge Order (Routine); Ordered 06/03/23 Ordered By: Nolberto Rayo Admission Data Admit Date/Time: 06/03/23 03:19 Attending Provider: Leobardo Del Cid Admit Provider: Sena Gage Primary Care Provider: Kishore Walsh Other Providers: Leobardo Del Cid; Von Rivas Coding
--- NOTE | 2023-06-03 18:23 | XCELERA ---
[id number]
--- NOTE | 2023-06-03 19:13 | Billing Data ---
Date of Service June 03, 2023 Coding Level of Care Code 49923 INT INP/OBS CARE
--- NOTE | 2023-06-03 20:18 | Ultrasound Report ---
US duplex renal artery CLINICAL HISTORY: hypertensive emergency TECHNIQUE: Real-time grayscale and color and spectral Doppler ultrasound imaging of the kidneys was p erformed. Comparison: None available at the time of this dictation. FINDINGS: Right kidney measures 9.5 cm. Left kidney measures 11.1 cm. RIGHT: The right kidney is normal in size, contour, cortical thickness, and echogenicity. No hydronephrosis is identified. No renal lesion is identified. Spectral analysis: Intrarenal resistive indices measure up to 0.54. Waveforms are normal in appearance.. Renal artery ve locities and waveforms are normal. Renal vein patent. LEFT: The left kidney is normal in size, contour, cortical thickness and echogenicity. No hydronephrosis i s identified. No renal lesion is identified. Spectral analysis: Intrarenal resistive indices measure up to 0.56. Waveforms are normal in appearance. Renal artery angel ocities and waveforms are normal. Renal vein patent. Abdominal aorta: Patent. Peak systolic velocity 82 cm/s. Reference ranges: Normal main renal artery peak systolic velocity less than 180 cm/s. Ratio of renal artery PSV to aort ic PSV less than 3.5 equates to normal or less than 60% stenosis. Only one of the two criteria listed needs to be met for diagnosis. Arcuate resistive indices about 0.8 are elevated. IMPRESSION: No evidence of renal artery stenosis. ACT 112: Negative or not required by law. Electronically signed by: Darian Cabrera M.D. 06/03/2023 8:16 PM
== END 2023-06-03 19:26 | disposition home or self-care (01) ==
LOC: SUATTDRO → ED 00:20 → 2S 00:20